=== PATIENT | male | born 1955 | race Caucasian/White ===

== ENCOUNTER 2021-09-03 09:32 | Outpatient (CLI) | payer MEDICARE, MEDICAID, SELFPAY ==
--- NOTE | ~2021-09-03 | MR_ITS ---
EXAMINATION: MR brain/brain stem wo con DATE: 09/03/2021 10:35 INDICATION: Long-term current use of current drug therapy. TECHNIQUE: Magnetic resonance imaging (MRI) of the brain and brainstem was performed without intraven ous contrast. Sequences included sagittal and axial T1-weighted FSE, axial diffusion-weighted FS EPI, axial T2*-weighted GRE, axial T2-weighted FLAIR Propeller, and axial T2-weighted Propeller. Apparent diffusion coefficient (ADC) maps were created. COMPARISON: None. FINDINGS: There are scattered areas of nonspecific increased T2-weighted signal intensity in the cere bral white matter. There is no intracranial hemorrhage, acute infarction, or abnormal intracranial ma ss lesion. The ventricles are normal in size. The orbits are normal. Right maxillary sinuses small an d completely opacified. The mastoid air cells are normal. IMPRESSION: 1. Moderate nonspecific cerebral white matter disease, which likely represents chronic small vessel i schemic disease. 2. Chronic sinusitis. Reviewed, dictated and finalized at location A. TIONSHIP ADVISOR IMPRESSION: 1. Moderate nonspecific cerebral white matter disease, which likely represents chronic small vessel ischemic disease. 2. Chronic sinusitis.
== END 2021-09-03 09:33 | disposition home or self-care (01) ==
PROVIDERS: PCP Internal Medicine
DX: Z79.899 Other long term (current) drug therapy (principal); J32.9 Chronic sinusitis, unspecified; R93.0 Abnormal findings on diagnostic imaging of skull and head, not elsewhere classified
CPT/HCPCS: 70551

== ENCOUNTER 2022-10-19 20:23 | Emergency (ER) | payer MEDICARE, MEDICAID, SELFPAY ==
--- NOTE | ~2022-10-19 | CT_ITS ---
EXAMINATION: CT brain wo con DATE: 10/19/2022 21:08 INDICATION: fall, HI, lac to L sided head . TECHNIQUE: Computed tomography (CT) of the head was performed without intravenous contrast. The mA wa s adjusted according to patient size. Iterative reconstruction technique was employed. The dose-lengt h product was 832.33 mGy-cm. COMPARISON: None. FINDINGS: No acute intracranial hemorrhage or extra-axial fluid collection. No hydrocephalus, mass, or herniation. No acute ischemic infarct. Unremarkable dural venous sinus attenuation. No acute osseous abnormality. Small left posterior temporal scalp contusion. Opacification of the right medullary sinus, the remaining aerated spaces are clear. Mild atrophy and chronic white matter change. Atherosclerotic intracranial calcification. Basilar dol ichoectasia. IMPRESSION: No acute intracranial process. Reviewed, dictated and finalized at location K.
--- NOTE | ~2022-10-19 | CT_ITS ---
EXAMINATION: CT cervical spine wo con DATE: 10/19/2022 21:17 INDICATION: fall, HI TECHNIQUE: Computed tomography (CT) of the cervical spine was performed without intravenous contrast. Automated exposure control and iterative reconstruction technique were employed. The dose-length pro duct was 762.99 mGy-cm. COMPARISON: None. FINDINGS: Vertebral Body Alignment: Intact. Reversed cervical lordosis. Craniocervical and atlantoaxial alignment: Mild degenerative change. Alignment intact. Osseous structures/fracture: No evidence of a lytic or blastic process in the visualized spine. No e vidence of acute fracture. . Cervical soft tissues: The paraspinal soft tissues planes are maintained. Enlarged thyroid. Degenerative changes: Multilevel severe degenerative disc disease with large bridging osteophytes, mu ltilevel mild facet arthropathy, without severe neural foraminal or central canal narrowing. IMPRESSION: No acute fracture or traumatic malalignment in the cervical spine. Thyroid goiter. Reviewed, dictated and finalized at location K. IMPRESSION: No acute fracture or traumatic malalignment in the cervical spine. Thyroid goit er.
[2022-10-19 20:27] VITALS: BP 111/71; PULSE 63; RESP 18; TEMP 36.4; O2SAT 100
[2022-10-19 20:38] VITALS: BP 127/84; PULSE 66; RESP 15; TEMP 36.5; O2SAT 100
[2022-10-19 21:18] VITALS: BP 127/74; PULSE 60; O2SAT 98
--- NOTE | 2022-10-19 21:45 | ED.WOUNDLAC ---
HPI - Wound/Laceration General Chief Complaint: Wound/Laceration Stated Complaint: fell in shower-hit head Time Seen by Provider: 10/19/22 20:53 Source: patient and family Mode of arrival: ambulatory Limitations: dementia History of Present Illness HPI narrative: Patient is a 67 y/o male who presents to the ED with report of head injury. Patient has a Hx of dementia and lives in a [facility] in [place], [place]. Caregiver at bedside assisted in providing information. She reports that patient was showering with one of the aides today when he slipped and fell, hitting the left side of his head against the shower floor. He sustained a small laceration to his left temporal scalp. Staff denied LOC. They state he has been at his neurologic baseline and moving all of his extremities since then. Denied any other injuries. Patient unable to voice any other concerns. Patient is not on any blood thinners. Related Data Home Medications Medication Instructions Recorded Confirmed acetaminophen 325 mg tablet (Mapap 325 mg PO Q6H PRN 10/01/21 10/01/21 (acetaminophen)) bisacodyl 5 mg tablet 10 mg PO QHS 10/01/21 10/01/21 bismuth subsalicylate 262 mg 2 tablet PO QID 10/01/21 10/01/21 chewable tablet (Bismatrol) guaifenesin 100 mg/5 mL oral 200 mg PO Q4H PRN 10/01/21 10/01/21 liquid (Robafen) triamcinolone acetonide 0.025 % 1 applic topical BID 10/01/21 10/01/21 topical cream Allergies Allergy/AdvReac Type Severity Reaction Status Date / Time No Known Allergies Allergy Verified 10/01/21 09:15 Review of Systems Review of Systems: ROS unobtainable: Yes unobtainable due to mental status PMFSH Past Medical History Medical History Dementia Surgical History Surgical History No pertinent past surgical history Social History Social History Smoking status: Never smoker Exam Narrative: GENERAL: Elderly, non-toxic, in no acute distress. HEAD: Normocephalic. Tender contusion to L posterior temporal scalp. Vertical linear 2cm laceration with no active bleeding, well approximated. ENT: Partially edentulous. NECK: Supple. No adenopathy, no masses. No midline spinal tenderness. RESPIRATORY: Airway patent, respirations nonlabored. Clear to auscultation bilaterally, no rales, rhonchi, wheezing. CARDIOVASCULAR: Regular rate and rhythm without murmurs, rubs, or gallops. Radial pulses 2+ and equal bilaterally. ABDOMINAL: Soft, nontender, nondistended, no hepatosplenomegaly. Normoactive BS. MUSCULOSKELETAL: Moves all extremities. No edema. No appreciable tenderness to palpation throughout all 4 extremities. SKIN: Warm, dry, normal color. No rashes. NEURO: Alert. Speech garbled, chronic per caregiver. Cranial nerves II-XII grossly intact. No ataxic movements. No focal deficits. Moving all extremities. PSYCHIATRIC: Appropriate mood and affect. Normal interaction. Course Vital Signs Vital signs: Vital Signs Temperature 97.6 F 10/19/22 20:27 Pulse Rate 63 10/19/22 20:27 Respiratory Rate 18 10/19/22 20:27 Blood Pressure 111/71 10/19/22 20:27 Pulse Oximetry 100 10/19/22 20:27 Oxygen Delivery Room Air 10/19/22 20:27 Temperature 97.7 F 10/19/22 20:38 Pulse Rate 67 10/19/22 22:52 Respiratory Rate 18 10/19/22 22:52 Blood Pressure 132/79 10/19/22 22:52 Pulse Oximetry 100 10/19/22 22:52 Oxygen Delivery Room Air 10/19/22 20:27 Procedures Laceration Laceration 1: Date: 10/19/22 Time: 21:45 Site: scalp Side (If applicable): left Size (cm): 2 Description: linear Depth: simple, single layer Local Anesthetic: none Pre-repair: wound explored and irrigated ====== Skin Level ====== Skin layer closed with: catrachita (#3) ====== Subcutaneo
[2022-10-19 22:52] VITALS: BP 132/79; PULSE 67; RESP 18; O2SAT 100
== END 2022-10-19 22:18 ==
PROVIDERS: Emergency Provider Physician Assistant
DX: S01.01XA Laceration without foreign body of scalp, initial encounter (principal); F03.90 Unspecified dementia, unspecified severity, without behavioral disturbance, psychotic disturbance, mood disturbance, and anxiety; W18.2XXA Fall in (into) shower or empty bathtub, initial encounter
CPT/HCPCS: 12001; 70450; 72125; 99284

== ENCOUNTER 2024-04-16 18:37 | Inpatient (IN) | payer MEDICARE, SELFPAY ==
--- NOTE | ~2024-04-16 | CT_ITS ---
CLINICAL INDICATION: Sacral decubitus. COMPARISON: None. TECHNIQUE: An enhanced CT of the abdomen and pelvis was performed utilizing multislice spiral technCHROMAom ue reconstructed at 2.5 mm slice thickness. Coronal and sagittal reconstructions were performed. The dose-length product was 1307.79 mGy-cm. Examination is markedly limited by motion artifact. FINDINGS/OBSERVATIONS: Visualized lower thorax:Dependent atelectasis within the bilateral lung bases. The heart is enlarged without pericardial effusion. Moderate hiatal hernia is present. Liver: Liver is normal in size and attenuation. Gallbladder and biliary system: The gallbladder is distended, likely with calcified stones (although possibly artifactual given motion artifact and adjacent vascular structures). Pancreas: The pancreas enhances homogeneously, without ductal dilatation. Spleen: The spleen is enlarged measuring 12 cm in longitudinal dimension. Kidneys: The bilateral kidneys enhance symmetrically. No stones or hydronephrosis. Adrenal glands: Bilateral adrenal glands are unremarkable Gastrointestinal tract: Fecal stasis within the transverse colon and rectum. Appendix:The appendix is of normal caliber (axial series, image 140) Vasculature: Densely calcified atherosclerotic disease. Lymph nodes: Scattered subcentimeter lymph nodes within the retroperitoneum and at the root of the me sentery. Scattered subcentimeter lymph nodes within the pelvis, without abnormal morphology or pathologic enla rgement. Pelvic structures: The bladder is decompressed with a Hagan catheter, limiting its evaluation. Significant amount of presacral inflammatory change is present, originating above the sacrum (at the level of the external iliacs artery and vein) and extending deep into the prerectal/presacral space. No superficial soft tissue defect is appreciated on cross-sectional imaging to suggest decubitus ulc er. Body wall and musculoskeletal: Anasarca within the visualized soft tissues of the deep pelvis and upp er thighs. IMPRESSION: Significant inflammatory change within the presacral space of the pelvis. No soft tissue defect or drainable fluid collection is appreciated. Splenomegaly. Reviewed, dictated and finalized at location A.
--- NOTE | ~2024-04-16 | XR_ITS ---
EXAMINATION: XR abdomen/kub 1V DATE: 04/22/2024 10:43 INDICATION: Constipation. TECHNIQUE: A supine view of the abdomen on 2 radiographs was obtained. COMPARISON: CT abdomen and pelvis 04/17/2024, radiographs 04/20/2024 FINDINGS: The small bowel is normal in caliber. Stool distends the rectum. IMPRESSION: 1. Stool distends the rectum. Reviewed, dictated and finalized at location A.
--- NOTE | ~2024-04-16 | XR_ITS ---
Exam: Abdomen 2V HISTORY: constipation COMPARISON: Reference is made to CT examination of the abdomen and pelvis dated 04/17/2024 TECHNIQUE: Supine images of the abdomen and pelvis. FINDINGS: Redemonstration of fecal stasis distending the rectum. Significantly enlarged air opacified stomach. Scattered loops small bowel without deonna dilatation. IMPRESSION: Findings suggesting impaction, as detailed above. Reviewed, dictated and finalized at location A.
--- NOTE | ~2024-04-16 | XR_ITS ---
XR chest 1V portable Ordering provider: Harjinder Leigh MD History: 69 years Male with . weakness/emesis . Comparison: July 31, 2015 FINDINGS: MEDIASTINUM: The cardiac silhouette is slightly enlarged. Congestive jonnathan. LUNGS: No infiltrates, effusions or pneumothorax. Prominent markings bilaterally with interstitial ch anges. OTHER: No free air under the diaphragm. Postoperative changes in the lower cervical area. IMPRESSION: Cardiomegaly with congestive jonnathan. Bilateral interstitial changes suggestive of pneumonitis versus pu lmonary edema. Reviewed, dictated and finalized at location A. IMPRESSION: Cardiomegaly with congestive jonnathan. Bilateral interstitial changes suggestive of pneumonitis versus pulmonary edema.
[2024-04-16 18:42] VITALS: TEMP 36.5
[2024-04-16 19:01] VITALS: BP 94/63; PULSE 94; RESP 20; O2SAT 98
[2024-04-16 19:03] VITALS: BP 94/63; PULSE 90; RESP 14; O2SAT 96
--- NOTE | 2024-04-16 19:03 | PC.NURSE ---
Pt arrived from [facility], [place] with 16FR chronic colon in place. urine in colon back was a dark yellow with sediment, thick, and had a foul odor. Colon exchanged with a new 16 bengali catheter.
--- NOTE | 2024-04-16 19:12 | ECG_ITS ---
Test Date: 2024-04-16 19:24:02 Measurements Intervals Milo Rate: 90 P: 22 NH: 122 QRS: -52 QRSD: 110 T: 72 QT: 368 QTc: 452 Interpretive Statements SINUS RHYTHM INCOMPLETE RIGHT BUNDLE BRANCH BLOCK [90+ ms QRS DURATION, TERMINAL R IN V1/V2, 40+ ms S IN I/aVL/V4/V5/V6] LEFT ANTERIOR FASCICULAR BLOCK [QRS AXIS <= -45, QR IN I, RS IN II] NONSPECIFIC T-WAVE ABNORMALITY ABNORMAL ECG No previous ECG available for comparison Electronically Signed On 04-17-2024 07:27:00 CDT by John Murphy M.D.
[2024-04-16] MEDS: PANTOPRAZOLE SODIUM IV 40 MG VIAL IV PUSH (19:51)
[2024-04-16 20:00] LABS: Basophils Percent Auto 0.2 % (0.2-1.2); Eosinophils Absolute Auto 0.3 K/mm3 (0-0.3); Eosinophils Percent Auto 3.8 % (0-4.4); Hematocrit 29.1 % (42.0-52.0); Hemoglobin 8.8 g/dL (14.0-18.0); Immature Granulocyte Absolute 0.06 K/mm3 (0.00-0.031); Immature Granulocyte Percent A 0.7 % (0-0.5); Lymphocytes Absolute Auto 1.47 K/mm3 (0.9-3.2); Lymphocytes Percent Auto 17.9 % (18.3-44.2); Mean Corpuscular HGB Conc 30.2 g/dl (32-36); Mean Corpuscular Hemoglobin 26.3 pg (26-34); Mean Corpuscular Volume 87.1 fl (80-100); Mean Platelet Volume 8.5 fl (7.4-10.4); Monocytes Absolute Auto 0.6 K/mm3 (0.1-0.6); Monocytes Percent Auto 7.6 % (2.6-8.5); Neutrophils Absolute Auto 5.7 K/mm3 (1.3-6.7); Neutrophils Percent Auto 69.8 % (45.5-73.1); Nucleated Red Blood Cells Perc 0.2 % (0.0-0.2); Platelet Count Result 398 k/mm3 (150-375); Red Blood Count 3.34 M/mm3 (4.6-6.20); Red Cell Distribution Width 15.2 % (11.5-14.5); White Blood Count 8.2 K/mm3 (4.5-10.0)
[2024-04-16 20:10] LABS: Alanine Aminotransferase 36 U/L (6-50); Albumin Level 2.9 g/dL (3.5-5.1); Alkaline Phosphatase 141 U/L (38-126); Anion Gap 8 mmol/L (4-12); Aspartate Amino Transferase 69 U/L (17-59); Bilirubin,Total 0.6 mg/dL (0.2-1.3); Blood Urea Nitrogen 22 mg/dL (9-20); Calcium 8.1 mg/dL (8.4-10.2); Carbon Dioxide 27 mmol/L (22-30); Chloride 103 mmol/L (98-107); Estimated CRCL calculation 135 ml/min; Estimated Glomerular Filt Rate > 60; Glucose 130 mg/dL (65-110); Potassium 3.6 mmol/L (3.4-5.0); Sodium 138 mmol/L (137-145)
[2024-04-16 20:23] VITALS: BP 98/58; PULSE 96; RESP 16; O2SAT 96
[2024-04-16 20:45] LABS: Add Urine Microscopic? YES; Appearance Urine Turbid (Clear); Bacteria Urine Rare /hpf; Bilirubin Urine Negative (Negative); Blood Urine 3+ (Negative); Color Urine Dark Yellow (Yellow); Glucose Urine UA Negative (Negative); Ketones Urine Trace mg/dL (Negative); Leukocyte Esterase Ur 2+ LEU/UL (Negative); Need Manual Microscopic Reviewed; Nitrate Urine Negative (Negative); Protein Urine 3+ mg/dL (Negative); RBC Urine >100 /hpf (0-2); Specific Grav Ur 1.029 (1.001-1.035); Squamous Epithelial Cell Urine None Seen /hpf (Few); WBC Urine >100 /hpf (0-3)
[2024-04-16] MEDS: SODIUM CHLORIDE 0.9% IV 1,000 ML 999 ML IV CONT (21:03)
--- NOTE | 2024-04-16 21:13 | ED.GIBLEED ---
HPI - GI Bleed General Chief complaint: GI Bleed Stated complaint: coffee ground emesis Time Seen by Provider: 04/16/24 19:22 History of Present Illness HPI Narrative: Patient is a 69-year-old male who is orient x1 at baseline who presents ER with concerns for coffee-ground emesis. Patient endorses mild nausea but cannot provide any additional history. No obvious blood around the mouth. Hagan catheter in place and patient is in padded lower extremity boots. Related Data Home Medications Medication Instructions Recorded Confirmed acetaminophen 325 mg tablet (Mapap 325 mg PO Q6H PRN 10/01/21 10/01/21 (acetaminophen)) bisacodyl 5 mg tablet 10 mg PO QHS 10/01/21 10/01/21 bismuth subsalicylate 262 mg 2 tablet PO QID 10/01/21 10/01/21 chewable tablet (Bismatrol) guaifenesin 100 mg/5 mL oral 200 mg PO Q4H PRN 10/01/21 10/01/21 liquid (Robafen) triamcinolone acetonide 0.025 % 1 applic topical BID 10/01/21 10/01/21 topical cream Allergies Allergy/AdvReac Type Severity Reaction Status Date / Time No Known Allergies Allergy Verified 04/16/24 19:09 Review of Systems Review of Systems: ROS unobtainable: Yes unobtainable due to mental status PMFSH Past Medical History Medical History (Updated 04/16/24 @ 22:20 by Feroz Rai MD) Bipolar disorder Pulmonary hypertension Vascular dementia Surgical History Surgical History No pertinent past surgical history Social History Social History Smoking status: Never smoker Exam Narrative: GENERAL: Chronically ill-appearing, well-nourished, and in no acute distress. HEAD: Normocephalic, atraumatic. EYES: PERRL and EOMI. ENT: Mucous membranes moist. CHEST: Clear to auscultation. No respiratory distress. HEART: Regular rate and rhythm. Normal peripheral pulses. ABDOMEN: Soft, nontender, nondistended. Heme-positive stool on guaiac but no gross blood. EXTREMITIES: Chronic upper and lower extremity weakness and unable to move self. SKIN: Warm, dry, no rash. Decubitus ulcer with her bandaging. NEURO: Alert and oriented x1. Course Course Emergency Course: Admit for observation. Q.6 hours H&Hs. Mild anemia but unsure what baseline is. Will have GI consult in the morning. Nursing staff change Hagan catheter. Vital Signs Vital signs: Vital Signs Temperature 97.7 F 04/16/24 18:42 Temperature 97.7 F 04/16/24 18:42 Pulse Rate 96 04/16/24 20:23 Respiratory Rate 16 04/16/24 20:23 Blood Pressure 98/58 L 04/16/24 20:23 Pulse Oximetry 96 04/16/24 20:23 MDM - GI Bleed Lab Data 04/16/24 19:16 04/16/24 19:16 Labs: Lab Results 04/16/24 04/16/24 04/16/24 Range/Units 19:16 20:25 21:05 WBC 8.2 (4.5-10.0) K/mm3 RBC 3.34 L (4.6-6.20) M/mm3 Hgb 8.8 L (14.0-18.0) g/dL Hct 29.1 L (42.0-52.0) % MCV 87.1 (80-100) fl MCH 26.3 (26-34) pg MCHC 30.2 L (32-36) g/dl RDW 15.2 H (11.5-14.5) % Plt Count 398 H (150-375) k/mm3 MPV 8.5 (7.4-10.4) fl Immature Gran % (Auto) 0.7 H (0-0.5) % Neut % (Auto) 69.8 (45.5-73.1) % Lymph % (Auto) 17.9 L (18.3-44.2) % Morrison % (Auto) 7.6 (2.6-8.5) % Eos % (Auto) 3.8 (0-4.4) % Baso % (Auto) 0.2 (0.2-1.2) % Lymph # (Auto) 1.47 (0.9-3.2) K/mm3 Morrison # (Auto) 0.6 (0.1-0.6) K/mm3 Eos # (Auto) 0.3 (0-0.3) K/mm3 Baso # (Auto) 0.0 (0.0-0.1) K/mm3 Abs Immat Gran (auto) 0.06 H (0.00-0.031) K/mm3 Absolute Neuts (auto) 5.7 (1.3-6.7) K/mm3 Absolute Nucleated RBC 0.020 H (0.0-0.012) K/mm3 Nucleated RBC % 0.2 (0.0-0.2) % Sodium 138 (137-145) mmol/L Potassium 3.6 (3.4-5.0) mmol/L Chloride 103 (98-107) mmol/L Carbon Dioxide 27 (22-30) mmol/L Anion Gap 8 (4-12) mmol/L BUN 22 H (9-20) mg/dL Creatinine 0.50 L (
--- NOTE | 2024-04-16 21:44 | PM.IMHP ---
H&P: HPI History of Present Illness Date/Time: 04/16/24 21:44 Chief Complaint: Coffee-ground emesis Narrative: This is a 69-year-old male who resides at a local home group has past medical history significant for seizure disorder, bipolar disorder, chronic indwelling Hagan catheter, dementia, gait disturbance. patient was brought to the emergency room for evaluation after episode of coffee-ground emesis patient is unable to give any history in emergency room he had a positive occult blood has been placed in observation for further evaluation management and treatment. Patient is unable to contribute in a meaningful way to history taking. Preliminary workup was significant for hemoglobin of 8.6 hematocrit of 28 MCV is 87 a urinalysis showed more than 100 WBCs present XR chest 1V portable Ordering provider: Harjinder Leigh MD History: 69 years Male with . weakness/emesis . Comparison: July 31, 2015 FINDINGS: MEDIASTINUM: The cardiac silhouette is slightly enlarged. Congestive jonnathan. LUNGS: No infiltrates, effusions or pneumothorax. Prominent markings bilaterally with interstitial changes. OTHER: No free air under the diaphragm. Postoperative changes in the lower cervical area. IMPRESSION: Cardiomegaly with congestive jonnathan. Bilateral interstitial changes suggestive of pneumonitis versus pulmonary edema. [facility] Past Medical History Medical History (Updated 04/17/24 @ 21:05 by Leland Magallanes MD) Bipolar disorder Pulmonary hypertension Vascular dementia Surgical History Surgical History No pertinent past surgical history Family History Family History (Updated 04/16/24 @ 23:45 by Domonique Castro RN) Father Hypertension Mother Lung cancer Diabetes mellitus Sibling Diabetes mellitus Cancer Hypertension Social History Social History Smoking status: Never smoker Alcohol intake: never Substance use: never Spiritual care concerns: No Meds Home Medications and Allergies Home Medications Medication Instructions Recorded Confirmed Type aripiprazole 20 mg tablet 20 mg PO DAILY 04/17/24 04/17/24 History escitalopram oxalate 10 mg tablet 10 mg PO .EVERYOTHERDAY 04/17/24 04/17/24 History furosemide 20 mg tablet 20 mg PO .04/17/24 04/17/24 History polyethylene glycol 3350 17 17 g PO DAILY PRN Constipation 10/08/24 10/08/24 History gram/dose oral powder simvastatin 20 mg tablet 20 mg PO HS 04/17/24 04/17/24 History trazodone 50 mg tablet 50 mg PO HS 04/17/24 04/17/24 History valproic acid (as sodium salt) 250 250 mg PO Q12H 04/17/24 04/17/24 History mg/5 mL syringe (FOR ORAL USE ONLY) Allergies Allergy/AdvReac Type Severity Reaction Status Date / Time No Known Allergies Allergy Verified 04/16/24 19:09 Vital Signs Vital Signs - 24 hr 04/16/24 18:42 04/16/24 19:03 04/16/24 20:23 Temperature 97.7 F Pulse Rate 90 96 Respiratory Rate 14 16 Blood Pressure 94/63 L 98/58 L Pulse Oximetry 96 96 04/16/24 19:01 Temperature Pulse Rate 94 Respiratory Rate 20 Blood Pressure 94/63 L Pulse Oximetry 98 Exam Narrative: patient is laying in bed Const: General: comfortable, no acute distress, well developed, alert, awake and average body habitus Nutritional Appearance: average body habitus Orientation/consciousness: oriented to person Other: dry mucosa HENMT: Head: normal to inspection, normocephalic and atraumatic Ears: hearing grossly normal bilaterally Face/Nose/Sinus: normal facial exam Face and sinus: normal facial exam Eyes: General: appearance normal, both eyes and all related structures Pupils: Equal, round and reactive pupils present EOM: EOMs intact bilaterally Neck: Neck: full ROM, no lymphadenopathy and no JVD Thyroid: thyroid normal Lymphatic: no lymphadenopathy noted Resp: E
--- NOTE | 2024-04-16 22:41 | PC.NURSE ---
Report called to THEA Brown. All questions answered at this time.
--- NOTE | 2024-04-16 22:52 | ADMGEN ---
This patient, Justin Langford, was admitted to Medical Room 243-01. Patient/family oriented to hospital policies and general routines including ID bracelet, bed and alarms, visiting hours, pain management, procedures, bathroom and other care routines, personal items, smoking policy, room service/diet, and visiting hours. Information on how to activate the Rapid Response Team has been discussed. Patient/Family are encouraged to report perceived risks to care and to ask questions if they do not understand what they are told or what they should do.
[2024-04-16] MEDS: SODIUM CHLORIDE 0.9% IV 1,000 ML 125 ML IV CONT (23:05)
[2024-04-16 23:14] VITALS: BP 99/52; PULSE 97; RESP 20; TEMP 36.9; O2SAT 99
[2024-04-16 23:15] VITALS: BMI 24.9
[2024-04-17] VITALS (10 sets, daily range): BP systolic 95–120; BP diastolic 46–71; PULSE 83–98; RESP 17–25; TEMP 36.3–36.7; O2SAT 93–99; BMI 24.9
[2024-04-17 01:08] LABS: Hematocrit 28.2 % (42.0-52.0); Hemoglobin 8.6 g/dL (14.0-18.0)
[2024-04-17 05:57] LABS: Hematocrit 25.8 % (42.0-52.0); Hemoglobin 7.6 g/dL (14.0-18.0)
[2024-04-17 06:22] LABS: Iron 22 ug/dL (49-181)
[2024-04-17 06:31] LABS: Percent Iron Saturation 12 % (20-50)
[2024-04-17 07:10] LABS: Folic Acid 5.3 ng/mL (2.76->20)
--- NOTE | 2024-04-17 07:18 | PM.IMPN ---
Progress Note: A&P Assessment and Plan (1) Occult GI bleeding: Code(s): R19.5 - Other fecal abnormalities Status: Acute Assessment and Plan: [facility] No obvious signs of bleeding on exam. Not on anticoagulation. Blood pressures have been soft 95/46, 90 HR. Hemoglobin 8.8 g/dl on admission, hgb 7.6 g/dl this morning BUN 22 Anemia panel: Iron 22, TIBC 191, Saturation 12%, vitamin B12 and folate normal Occult blood pending collection Trend H/H, transfuse for Hemoglobin less than 7 g/dl IV Venofer x 1 and start on Iron supplement daily Received 1 L bolus in the ED and receiving 1 L bolus NS this morning. On maintenance fluids at 125 ml per hour while NPO. GI consulted, rec's are appreciated (2) Wound of gluteal cleft: Code(s): S31.809A - Unspecified open wound of unspecified buttock, initial encounter Status: Acute Assessment and Plan: Wound to left gluteal clef unstageable wound with surrounding erythema with purulent drainage. [facility] and is [facility] care at [facility]. CT abdomen and pelvis w contrast now WBC normal, lactic pending On Rocephin for UTI, added Vancomycin CRP, ESR pending Turn Q 2 hours, frequent repositioning Wound care consulted. For now daily wound care with Santyl, adaptic, and ABD daily and as needed for soiled dressing. General surgery consulted as this may need to be debrided, recs appreciated (3) UTI (urinary tract infection): Code(s): N39.0 - Urinary tract infection, site not specified Status: Acute Assessment and Plan: Chronic Hagan catheter. U/A on admission showed turbid dark yellow urine with 3+ protein, trace ketones, 3+ blood 2 a day, RBC and WBC greater than 100, rare urine bacteria. WBC normal, no neutrophils Urine sent for culture. Suspect this is colonization. Obtain blood cultures if febrile greater than 100.4 Make sure catheter was exchanged. Started on Rocephin (4) Normochromic normocytic anemia: Code(s): D64.9 - Anemia, unspecified Status: Acute Assessment and Plan: Hemoglobin 8.8 g/dl, MCHC 30.2 Anemia panel shows iron deficiency Investigate upper GI bleed Subjective Date/time seen: 04/17/24 07:18 Interval history: Resting in bed with his sister at the bedside. He is non-verbal, garbled speech at baseline. His family can sometime understand him. He is going for an EGD today. Review of Systems Review of Systems: ROS unobtainable: Yes unobtainable due to medical condition and unobtainable due to mental status Exam Narrative: General: appears comfortable, in no acute distress, does not open eyes to verbal stimuli Respiratory: breathing is unlabored with even chest rise/fall, lungs are clear without wheezing, rhonchi, and crackles Cardiovascular: Rate and rhythm regular, normal s1s2, no murmur Abdomen: Soft, round, non-tender, active bowel sounds Extremities: No cyanosis, edema, clubbing. Pulses 2/2, bilateral footdrop, hands are contracted Neuro: Unable to assess. Garbled speech, moaning and groaning to stimuli Skin: Warm, dry, intact. Pressure related injury to left buttocks with eschar wound bed and surrounding erythema Objective Data Vital Signs Vital Signs: Vital Signs - 24 hr 04/16/24 18:42 04/16/24 19:03 04/16/24 20:23 Temperature 97.7 F Pulse Rate 90 96 Respiratory Rate 14 16 Blood Pressure 94/63 L 98/58 L Pulse Oximetry 96 96 Oxygen Delivery 04/16/24 19:01 04/16/24 23:14 04/16/24 23:30 Temperature 98.5 F Pulse Rate 94 97 Respiratory Rate 20 20 Blood Pressure 94/63 L 99/52 L Pulse Oximetry 98 99 Oxygen Delivery Room Air 04/17/24 00:00 04/17/24 04:57 04/17/24 04:00 Temperature 98.1 F Pulse Rate 98 90 93 Respiratory Rate 24 H Blood Pressure 95/46 L Pulse Oximetry 94 Oxygen Delivery Intake/Output Intake/Output: Intake & Ou
[2024-04-17] MEDS: SODIUM CHLORIDE 0.9% IV 1,000 ML 999 ML IV CONT (07:41)
--- NOTE | 2024-04-17 08:08 | WPDGICN ---
Assessment and Plan Assessment and plan (1) Coffee ground emesis: Code(s): K92.0 - Hematemesis Status: Acute Assessment and Plan: Coffee-ground emesis / Normocytic Anemia: Asked to be seen for coffee ground emesis. No known history of GI bleed. No known history of EGD. Colonoscopy reviewed from [address] Leung for rectal bleeding and family history of colon polyps with evidence of a sigmoid colon polyp and internal hemorrhoids. Hemoglobin on admission was 8.8 has dropped to 7.6 this morning with hematocrit of 25.8, MCV 87.1, BUN 22, creatinine 0.50, iron 22, TIBC 191, iron sat 12%. No ferritin. Anemia appears to be more anemia of chronic disease although but no baseline Hgb to trend. There is concern for upper GI bleed. No visible bleeding at this time. He is currently NPO -Keep NPO and will arrange EGD today to assess for any GI bleeding. -Monitor H&H -Continue pantoprazole 40 mg BID IV at this time -Recommend colonoscopy outpatient -further recs following EGD. Thank you very much for allowing me to share in the care of this very nice patient. This report may have been done utilizing a voice recognition system. Attempts have been made to correct errors. However, there may be uncorrected grammatical, spelling, and recognition errors present. (2) Normocytic anemia: Code(s): D64.9 - Anemia, unspecified Status: Acute (3) Dementia: Code(s): F03.90 - Unspecified dementia, unspecified severity, without behavioral disturbance, psychotic disturbance, mood disturbance, and anxiety Status: Acute (4) Chronic indwelling Hagan catheter: Code(s): Z97.8 - Presence of other specified devices Status: Acute (5) Bipolar disorder: Code(s): F31.9 - Bipolar disorder, unspecified Status: Acute (6) UTI (urinary tract infection): Code(s): N39.0 - Urinary tract infection, site not specified Status: Acute (7) History of adenomatous polyp of colon: Code(s): Z86.0101 - Personal history of adenomatous and serrated colon polyps Status: Acute GI Consult Note Consult date/time: 04/17/24 08:08 Reason for consult: coffee ground emesis HPI: This is a pleasant 69 yo male with a past medical surgical history of vascular dementia, bipolar disorder, seizures, and pulmonary hypertension. He presented to the ER room 04/16/2024 with complaints of coffee-ground emesis. [facility]. GI consulted for coffee ground emesis. He is alert and oriented x 1 at baseline. HPI was obtained from ER history and physical and admission hospitalist note. He was brought to the emergency room for evaluation after episode of coffee-ground emesis. He had positive occult blood. Unknown history of any past GI bleeding. It does not appear there is NSAIDs on his medication list. It appears he eats a puree diet reviewing penitentiary notes. Per nurse this AM, has had no vomiting over night or stooling. He is currently NPO. His sister is his POA. Hemoglobin on admission was 8.8 has dropped to 7.6 this morning with hematocrit of 25.8, MCV 87.1, BUN 22, creatinine 0.50, iron 22, TIBC 191, iron sat 12% with normal b12 and folate. Not sure what his baseline Hgb is. ENDOSCOPY HISTORY: EGD: No known EGD per records COLONOSCOPY: 2012 (Dr. Hidalgo) rectal bleeding and family history of colon polyps sigmoid colon polyp and internal hemorrhoids -Sigmoid Colon polyp and internal hemorrhoids -Adenomatous colon polyp LABS AND STOOL STUDIES: Hemoglobin on admission 8.8 --> 7.6 this morning Hematocrit 25.8 MCV 87.1 BUN 22 Creatinine 0.50 Iron 22 TIBC 191 Iron sat 12% Vitamin B12 IMAGING: No recent GI imaging available [facility] Past Medical History Medical History (Updated 04/17/24 @ 08:19 by Mellisa Trevino, TRISTEN) Bipolar disorder Pulmonary hypertension Vascular dementia Surgical History Surgical History (Revie
[2024-04-17 08:43] LABS: Basophils Percent Auto 0.5 % (0.2-1.2); Eosinophils Absolute Auto 0.4 K/mm3 (0-0.3); Eosinophils Percent Auto 6.7 % (0-4.4); Hematocrit 25.2 % (42.0-52.0); Hemoglobin 7.6 g/dL (14.0-18.0); Immature Granulocyte Absolute 0.08 K/mm3 (0.00-0.031); Immature Granulocyte Percent A 1.4 % (0-0.5); Lymphocytes Absolute Auto 1.56 K/mm3 (0.9-3.2); Lymphocytes Percent Auto 26.8 % (18.3-44.2); Mean Corpuscular HGB Conc 30.2 g/dl (32-36); Mean Corpuscular Hemoglobin 26.6 pg (26-34); Mean Corpuscular Volume 88.1 fl (80-100); Mean Platelet Volume 8.6 fl (7.4-10.4); Monocytes Absolute Auto 0.5 K/mm3 (0.1-0.6); Monocytes Percent Auto 8.1 % (2.6-8.5); Neutrophils Absolute Auto 3.3 K/mm3 (1.3-6.7); Neutrophils Percent Auto 56.5 % (45.5-73.1); Platelet Count Result 359 k/mm3 (150-375); Red Blood Count 2.86 M/mm3 (4.6-6.20); Red Cell Distribution Width 15.2 % (11.5-14.5); White Blood Count 5.8 K/mm3 (4.5-10.0)
[2024-04-17] MEDS: SODIUM CHLORIDE 0.9% IV 1,000 ML 125 ML IV CONT (08:49)
[2024-04-17] MEDS: IRON SUCROSE COMPLEX 200 MG, IRON SUCROSE COMPLEX 100 MG in SODIUM CHLORIDE 0.9% IV 250 ML 176.67 MG IVPB (08:50)
[2024-04-17 08:57] LABS: Alanine Aminotransferase 28 U/L (6-50); Albumin Level 2.5 g/dL (3.5-5.1); Alkaline Phosphatase 115 U/L (38-126); Anion Gap 5 mmol/L (4-12); Aspartate Amino Transferase 52 U/L (17-59); Bilirubin,Total 0.4 mg/dL (0.2-1.3); Blood Urea Nitrogen 18 mg/dL (9-20); Calcium 7.8 mg/dL (8.4-10.2); Carbon Dioxide 25 mmol/L (22-30); Chloride 110 mmol/L (98-107); Estimated CRCL calculation 164 ml/min; Estimated Glomerular Filt Rate > 60; Glucose 96 mg/dL (65-110); Potassium 3.3 mmol/L (3.4-5.0); Sodium 140 mmol/L (137-145)
[2024-04-17] MEDS: FERROUS SULFATE 325 MG TABLET DR PO (08:57)
[2024-04-17] MEDS: PANTOPRAZOLE SODIUM IV 40 MG VIAL IV PUSH ×2 (08:57→21:03)
[2024-04-17] MEDS: VALPROIC ACID LIQ 250 MG/5 ML ORAL SOLUTION UDC PO ×2 (08:57→21:03)
[2024-04-17] MEDS: ARIPiprazole 10 MG TABLET 20 MG PO (08:57)
--- NOTE | 2024-04-17 10:50 | PC.NURSE ---
To GI Lab at 1050, IV in R and L hand. Report given to THEA Serna.
[2024-04-17] MEDS: LACTATED RINGERS 1,000 ML 150 ML IV CONT (10:55)
--- NOTE | 2024-04-17 11:24 | WPDANESEPPF ---
Anes - Initial Pre Proc Eval Procedure: Operation Date: 04/17/24 15:00 Proposed Procedures p Esophagogastroduodenoscopy - Leland Magallanes MD Date/Time: 04/17/24 11:24 Surgeon: Tess Vzaquez MD Pre Op Diagnosis: Occult GI bleed, Anemia Patient Data Age: 69 Gender: M Height: 1.88 m Weight: 88 kg Last Vital Signs Temp 97.3 F L 04/17/24 10:57 Pulse 90 04/17/24 10:57 Resp 22 H 04/17/24 10:57 BP 107/59 L 04/17/24 10:57 Pulse Ox 99 04/17/24 10:57 O2 Del Method Room Air 04/17/24 10:57 FiO2 21 04/17/24 08:02 Allergies Allergy/AdvReac Type Severity Reaction Status Date / Time No Known Allergies Allergy Verified 04/16/24 19:09 Home Medications Medication Instructions Recorded Confirmed Type aripiprazole 20 mg tablet 20 mg PO DAILY 04/17/24 04/17/24 History escitalopram oxalate 10 mg tablet 10 mg PO .EVERYDAY 04/17/24 04/17/24 History furosemide 20 mg tablet 20 mg PO .MONTuesday04/17/24 04/17/24 History polyethylene glycol 3350 17 17 g PO DAILY PRN Constipation 04/17/24 04/17/24 History gram/dose oral powder simvastatin 20 mg tablet 20 mg PO HS 04/17/24 04/17/24 History trazodone 50 mg tablet 50 mg PO HS 04/17/24 04/17/24 History valproic acid (as sodium salt) 250 250 mg PO Q12H 04/17/24 04/17/24 History mg/5 mL syringe (FOR ORAL USE ONLY) Laboratory Tests 04/16/24 04/16/24 04/16/24 19:16 20:25 21:05 WBC 8.2 K/mm3 (4.5-10.0) RBC 3.34 L M/mm3 (4.6-6.20) Hgb 8.8 L g/dL (14.0-18.0) Hct 29.1 L % (42.0-52.0) MCV 87.1 fl (80-100) MCH 26.3 pg (26-34) MCHC 30.2 L g/dl (32-36) RDW 15.2 H % (11.5-14.5) Plt Count 398 H k/mm3 (150-375) MPV 8.5 fl (7.4-10.4) Immature Gran % (Auto) 0.7 H % (0-0.5) Neut % (Auto) 69.8 % (45.5-73.1) Lymph % (Auto) 17.9 L % (18.3-44.2) Walker % (Auto) 7.6 % (2.6-8.5) Eos % (Auto) 3.8 % (0-4.4) Baso % (Auto) 0.2 % (0.2-1.2) Lymph # (Auto) 1.47 K/mm3 (0.9-3.2) Walker # (Auto) 0.6 K/mm3 (0.1-0.6) Eos # (Auto) 0.3 K/mm3 (0-0.3) Baso # (Auto) 0.0 K/mm3 (0.0-0.1) Abs Immat Gran (auto) 0.06 H K/mm3 (0.00-0.031) Absolute Neuts (auto) 5.7 K/mm3 (1.3-6.7) Absolute Nucleated RBC 0.020 H K/mm3 (0.0-0.012) Nucleated RBC % 0.2 % (0.0-0.2) Sodium 138 mmol/L (137-145) Potassium 3.6 mmol/L (3.4-5.0) Chloride 103 mmol/L (98-107) Carbon Dioxide 27 mmol/L (22-30) Anion Gap 8 mmol/L (4-12) BUN 22 H mg/dL (9-20) Creatinine 0.50 L mg/dL (0.7-1.3) Estim Creat Clear Calc 135 ml/min Estimated GFR > 60 (59 - ) Glucose 130 H mg/dL (65-110) Calcium 8.1 L mg/dL (8.4-10.2) Iron TIBC % Saturation Ferritin Total Bilirubin 0.6 mg/dL (0.2-1.3) AST 69 H U/L (17-59) ALT 36 U/L (6-50) Alkaline Phosphatase 141 H U/L (38-126) Total Protein 6.0 L g/dL (6.3-8.2) Albumin 2.9 L g/dL (3.5-5.1) Vitamin B12 Folate Urine Color Dark yellow (Yellow) Urine Appearance Turbid H (Clear) Urine pH 6.0 (5.0-9.0) Ur Specific [place] 1.029 (1.001-1.035) Urine Protein 3+ H mg/dL (Negative) Urine Glucose (UA) Negative mg/dL (Negative) Urine Ketones Trace H mg/dL (Negative) Ur Blood (Man) 3+ H (Negative) Urine Nitrate Negative (Negative) Urine Bilirubin Negative (Negative) Urine Urobilinogen 1.0 mg/dL (<2.0) Add Ur Microanalysis Reviewed Leukocyte Esterase Rfl 2+ H MARYSOL/UL (Negative) Urine R
--- NOTE | 2024-04-17 11:51 | PM.IMHP ---
H&P: HPI History of Present Illness Date/Time: 04/17/24 11:51 Chief Complaint: cofee ground emesis Narrative: This patient with a diagnosis of bipolar disorder, seizures, presented with coffee-ground emesis 24 hours ago. There is no reported hemodynamic instability. His hemoglobin dropped from 8.8-7.6, and he is here for EGD. Differential diagnosis includes erosive esophagitis, Neda-Don tear, or erosive lesions in the gastroduodenal region. Review of Systems Review of Systems: All systems reviewed & are unremarkable except as noted in HPI and below PMFSH Past Medical History Medical History (Updated 04/17/24 @ 11:56 by Leland Magallanes MD) Bipolar disorder Pulmonary hypertension Vascular dementia Surgical History Surgical History No pertinent past surgical history Family History Family History (Updated 04/16/24 @ 23:45 by Domonique Castro RN) Father Hypertension Mother Lung cancer Diabetes mellitus Sibling Diabetes mellitus Cancer Hypertension Social History Social History Smoking status: Never smoker Alcohol intake: never Substance use: never Spiritual care concerns: No Meds Home Medications and Allergies Home Medications Medication Instructions Recorded Confirmed Type aripiprazole 20 mg tablet 20 mg PO DAILY 04/17/24 04/17/24 History escitalopram oxalate 10 mg tablet 10 mg PO .EVERYOTHERDAY 04/17/24 04/17/24 History furosemide 20 mg tablet 20 mg PO .04/17/24 04/17/24 History polyethylene glycol 3350 17 17 g PO DAILY PRN Constipation 04/17/24 04/17/24 History gram/dose oral powder simvastatin 20 mg tablet 20 mg PO HS 04/17/24 04/17/24 History trazodone 50 mg tablet 50 mg PO HS 04/17/24 04/17/24 History valproic acid (as sodium salt) 250 250 mg PO Q12H 04/17/24 04/17/24 History mg/5 mL syringe (FOR ORAL USE ONLY) Allergies Allergy/AdvReac Type Severity Reaction Status Date / Time No Known Allergies Allergy Verified 04/16/24 19:09 Vital Signs Vital Signs - 24 hr 04/16/24 18:42 04/16/24 19:03 04/16/24 20:23 Temperature 97.7 F Pulse Rate 90 96 Respiratory Rate 14 16 Blood Pressure 94/63 L 98/58 L Pulse Oximetry 96 96 Oxygen Delivery Fraction of Inspired Oxygen 04/16/24 19:01 04/16/24 23:14 04/16/24 23:30 Temperature 98.5 F Pulse Rate 94 97 Respiratory Rate 20 20 Blood Pressure 94/63 L 99/52 L Pulse Oximetry 98 99 Oxygen Delivery Room Air Fraction of Inspired Oxygen 04/17/24 00:00 04/17/24 04:57 04/17/24 04:00 Temperature 98.1 F Pulse Rate 98 90 93 Respiratory Rate 24 H Blood Pressure 95/46 L Pulse Oximetry 94 Oxygen Delivery Fraction of Inspired Oxygen 04/17/24 08:02 04/17/24 10:57 Temperature 97.3 F L Pulse Rate 90 Respiratory Rate 22 H Blood Pressure 107/59 L Pulse Oximetry 94 99 Oxygen Delivery Room Air Room Air Fraction of Inspired Oxygen 21 H&P: Results Labs Labs: Short CBC 04/16/24 04/17/24 04/17/24 Range/Units 19:16 00:08 05:28 WBC 8.2 (4.5-10.0) K/mm3 Hgb 8.8 L 8.6 L 7.6 L (14.0-18.0) g/dL Hct 29.1 L 28.2 L 25.8 L (42.0-52.0) % Plt Count 398 H (150-375) k/mm3 04/17/24 Range/Units 07:49 WBC 5.8 (4.5-10.0) K/mm3 Hgb 7.6 L (14.0-18.0) g/dL Hct 25.2 L (42.0-52.0) % Plt Count 359 (150-375) k/mm3 BMP 04/16/24 04/17/24 19:16 07:49 Sodium 138 140 Potassium 3.6 3.3 L Chloride 103 110 H Carbon Dioxide 27 25 BUN 22 H 18 Creatinine 0.50 L 0.40 L Glucose 130 H 96 Calcium 8.1 L 7.8 L Liver Function 04/16/24 04/17/24 Range/Units 19:16 07:49 Total Bilirubin 0.6 0.4 (0.2-1.3) mg/dL AST 69 H 52 (17-59) U/L ALT 36 28 (6-50) U/L Alkaline Phosphatase 141 H 115 (38-126) U/L Albumin 2.9 L 2.5 L (3.5-5.1) g/dL Urine 04/16/24 Range/Units
[2024-04-17] MEDS: KCL 20 MEQ/SW 100 ML 100 ML 50 MEQ IVPB (13:06)
[2024-04-17] MEDS: VANCOMYCIN 1,250 MG/NS 250 ML 1,250 MG/250 ML BAG 166.67 MG IVPB (16:16)
[2024-04-17] MEDS: COLLAGENASE OINT 30 GM TUBE 1 APPLIC TOPICAL (16:19)
--- NOTE | 2024-04-17 16:52 | PM.CNGS ---
Assessment and Plan Assessment and plan (1) Pressure ulcer of left buttock: Qualifiers: Pressure injury stage: unstageable Qualified Code(s): L89.320 - Pressure ulcer of left buttock, unstageable Code(s): L89.329 - Pressure ulcer of left buttock, unspecified stage Status: Acute Assessment and Plan: I reviewed the CT and assessed the patient. He has a pressure injury on his left buttock region. There is a necrotic eschar on the surface but the surrounding and deeper tissue appears likely intact. Agree with current treatment with Santyl ointment applied daily. Will monitor for any significant changes that would require surgical debridement. Continue limiting pressure to this side and frequent position changes in bed. (2) Seizure disorder: Code(s): G40.909 - Epilepsy, unspecified, not intractable, without status epilepticus Status: Acute (3) Gait disturbance: Code(s): R26.9 - Unspecified abnormalities of gait and mobility Status: Acute History of Present Illness Consult details Consult date: 04/17/24 Reason for consult: other (Left gluteal decubitus ulcer) Requesting physician: Jocy Gray APRN Narrative: This is a 69-year-old man who I am asked to see for a left gluteal pressure ulcer. He is only oriented x1 and does not offer any history. The chart is reviewed to obtain full history. He presented to the emergency department 2 days ago for coffee-ground emesis and was admitted for further workup and treatment. He underwent EGD today and no source of upper GI bleeding was identified. He was also sent down to CT this afternoon because of a left gluteal wound. The wound care nurses have evaluated patient and orders are in place for Santyl treatments. Patient is confined to the bed. He was transferred from an outside senior care facility. Review of Systems Review of Systems: ROS unobtainable: Yes unobtainable due to medical condition and unobtainable due to mental status PMFSH Past Medical History Medical History (Updated 04/17/24 @ 17:04 by Akira Vargas DO) Bipolar disorder Pulmonary hypertension Vascular dementia Surgical History Surgical History No pertinent past surgical history Family History Family History (Updated 04/16/24 @ 23:45 by Domonique Castro RN) Father Hypertension Mother Lung cancer Diabetes mellitus Sibling Diabetes mellitus Cancer Hypertension Social History Social History Smoking status: Never smoker Alcohol intake: never Substance use: never Spiritual care concerns: No Meds Home Medications and Allergies Home Medications Medication Instructions Recorded Confirmed Type aripiprazole 20 mg tablet 20 mg PO DAILY 04/17/24 04/17/24 History escitalopram oxalate 10 mg tablet 10 mg PO .EVERY04/17/24 04/17/24 History furosemide 20 mg tablet 20 mg PO .04/17/24 04/17/24 History polyethylene glycol 3350 17 17 g PO DAILY PRN Constipation 04/17/24 04/17/24 History gram/dose oral powder simvastatin 20 mg tablet 20 mg PO HS 04/17/24 04/17/24 History trazodone 50 mg tablet 50 mg PO HS 04/17/24 04/17/24 History valproic acid (as sodium salt) 250 250 mg PO Q12H 04/17/24 04/17/24 History mg/5 mL syringe (FOR ORAL USE ONLY) Allergies Allergy/AdvReac Type Severity Reaction Status Date / Time No Known Allergies Allergy Verified 04/16/24 19:09 Vital Signs Vital Signs - 24 hr 04/16/24 18:42 04/16/24 19:03 04/16/24 20:23 Temperature 97.7 F Pulse Rate 90 96 Respiratory Rate 14 16 Blood Pressure 94/63 L 98/58 L Pulse Oximetry 96 96 Oxygen Delivery Fraction of Inspired Oxygen 04/16/24 19:01 04/16/24 23:14 04/16/24 23:30 Temperature 98.5 F Pulse Rate 94 97 Respiratory Rate 20 20 Blood Pressure 94/63 L 99/52 L Pulse Oximetry 98 99 Ox
[2024-04-17 17:06] LABS: Hematocrit 27.2 % (42.0-52.0); Hemoglobin 7.9 g/dL (14.0-18.0)
[2024-04-17 17:18] LABS: Lactic Acid Reflex 0.9 mmol/L (0.7-2.0)
[2024-04-17 17:22] LABS: CRP 5.6 mg/dL (<1.0)
[2024-04-17 18:47] LABS: Erythrocyte Sedimentation Rate > 140 mm/hr (0-20)
--- NOTE | 2024-04-17 20:34 | WPDGIPROGNO ---
Progress Note: A&P Assessment and Plan (1) Coffee ground emesis: Code(s): K92.0 - Hematemesis Status: Acute (2) Hiatal hernia: Code(s): K44.9 - Diaphragmatic hernia without obstruction or gangrene Status: Acute Plan Will sign off for now, please let us know if there is any other GI related problem. thank you for the consultation. Time Spent With Patient Time with patient: less than 15 minutes Subjective Date/time seen: 04/17/24 20:34 Interval history: The patient did not have gastroesophageal or duodenal lesions, other than a small no complicated hiatal hernia. Besides standard anti reflux measures, no further recommendations can be mede at this time. Please let us know if we can be of further assistance. Review of Systems Review of Systems: All systems reviewed & are unremarkable except as noted in HPI and below Objective Data Vital Signs Vital Signs: Vital Signs - 24 hr 04/16/24 23:14 04/16/24 23:30 04/17/24 00:00 Temperature 98.5 F Pulse Rate 97 98 Respiratory Rate 20 Blood Pressure 99/52 L Pulse Oximetry 99 Oxygen Delivery Room Air Fraction of Inspired Oxygen 04/17/24 04:57 04/17/24 04:00 04/17/24 08:02 Temperature 98.1 F Pulse Rate 90 93 Respiratory Rate 24 H Blood Pressure 95/46 L Pulse Oximetry 94 94 Oxygen Delivery Room Air Fraction of Inspired Oxygen 21 04/17/24 10:57 04/17/24 08:00 04/17/24 12:29 Temperature 97.3 F L Pulse Rate 90 89 Respiratory Rate 22 H 25 H Blood Pressure 107/59 L 119/68 Pulse Oximetry 99 99 Oxygen Delivery Room Air Room Air Room Air Fraction of Inspired Oxygen 04/17/24 12:39 04/17/24 12:49 04/17/24 14:00 Temperature 98.1 F Pulse Rate 94 96 85 Respiratory Rate 17 20 22 H Blood Pressure 120/71 108/63 108/46 L Pulse Oximetry 99 99 97 Oxygen Delivery Room Air Room Air Fraction of Inspired Oxygen 04/17/24 20:06 Temperature 97.5 F L Pulse Rate 83 Respiratory Rate 20 Blood Pressure 101/49 L Pulse Oximetry 93 Oxygen Delivery Fraction of Inspired Oxygen Intake/Output Intake/Output: Intake & Output 04/14/24 04/15/24 04/16/24 04/17/24 23:59 23:59 23:59 23:59 Intake Total 1000 2580 Output Total 850 Balance 1000 1730 Meds/Results Medications: Active Medications Generic Name Dose Route Start Last Admin Trade Name Frecarlo PRN Reason Stop Dose Admin Aripiprazole 20 mg 04/17/24 09:00 04/17/24 08:57 Aripiprazole 10 Mg Tablet PO 05/17/24 08:59 20 mg DAILY YEN Administration Collagenase 1 applic 04/17/24 09:00 04/17/24 16:19 Collagenase Oint 30 Gm Tube TOPICAL 1 applic QAM YEN Administration Escitalopram Oxalate 10 mg 04/18/24 09:00 Escitalopram Oxalate 10 Mg Tablet PO Q48H YEN Ferrous Sulfate 325 mg 04/17/24 09:00 04/17/24 08:57 Ferrous Sulfate [address] PO 325 mg DAILY YEN Administration Ceftriaxone Sodium 1 gm in 50 mls @ 100 mls/hr 04/17/24 03:00 04/17/24 04:12 Rocephin 1 Gm/Ns 50 Ml IVPB Infused Q24H YEN Infusion Vancomycin HCl 1,250 mg in 250 mls @ 166.667 mls/hr 04/17/24 16:00 04/17/24 17:46 Vancomycin 1,250 Mg/Ns 250 Ml IVPB Infused Q12H YEN Infusion Pantoprazole Sodium 40 mg 04/17/24 09:00 04/17/24 08:57 Pantoprazole Sodium Iv 40 Mg Vial IV PUSH 40 mg Q12HR YEN Administration Polyethylene Glycol 17 gm 04/17/24 02:20 Polyethylene Glycol 3350 17 Gm Powd.Pack PO DAILY PRN Constipation Simvastatin 20 mg 04/17/24 21:00 Simvastatin 20 Mg Tablet PO HS EYN Trazodone HCl 50 mg 04/17/24 21:00 Trazodone Hcl 50 Mg Tablet PO HS YEN Valproate Sodium 250 mg 04/17/24 09:00 04/17/24 08:57 Valproic Acid Liq 250 Mg/5 Ml Oral Solution Udc PO 250 mg Q12HR YEN Administration Radiology Results: ITS Impressions Chest X-Ray 04/16/24 19:55 IMPRESSION: Cardiomegaly with congestive jonnathan. Bilateral interstitial changes suggestiv
[2024-04-17] MEDS: SIMVASTATIN 20 MG TABLET PO (21:03)
[2024-04-17] MEDS: traZODone HCL 50 MG TABLET PO (21:03)
--- NOTE | 2024-04-17 22:51 | PC.NURSE ---
LVM to Sabrina Argueta @1317 regarding pt's urine culture preliminary results. Preliminary results show pt is growing gram neg bacilli isolated. Pt is on IV Rocephin and vancomycin.
[2024-04-18] MEDS: VANCOMYCIN 1,250 MG/NS 250 ML 1,250 MG/250 ML BAG 166.67 MG IVPB ×2 (03:24→16:55)
[2024-04-18 05:25] VITALS: BP 108/46; PULSE 97; RESP 16; TEMP 36.6; O2SAT 95
[2024-04-18 06:07] LABS: Basophils Percent Auto 0.2 % (0.2-1.2); Eosinophils Absolute Auto 0.4 K/mm3 (0-0.3); Eosinophils Percent Auto 7.8 % (0-4.4); Hematocrit 24.9 % (42.0-52.0); Hemoglobin 7.4 g/dL (14.0-18.0); Immature Granulocyte Percent A 1.9 % (0-0.5); Lymphocytes Absolute Auto 1.31 K/mm3 (0.9-3.2); Lymphocytes Percent Auto 24.9 % (18.3-44.2); Mean Corpuscular HGB Conc 29.7 g/dl (32-36); Mean Corpuscular Hemoglobin 26.1 pg (26-34); Mean Corpuscular Volume 87.7 fl (80-100); Mean Platelet Volume 8.4 fl (7.4-10.4); Monocytes Absolute Auto 0.4 K/mm3 (0.1-0.6); Monocytes Percent Auto 8.2 % (2.6-8.5); Platelet Count Result 374 k/mm3 (150-375); Red Blood Count 2.84 M/mm3 (4.6-6.20); Red Cell Distribution Width 15.4 % (11.5-14.5); White Blood Count 5.3 K/mm3 (4.5-10.0)
[2024-04-18 06:19] LABS: Anion Gap 6 mmol/L (4-12); Blood Urea Nitrogen 10 mg/dL (9-20); Carbon Dioxide 25 mmol/L (22-30); Chloride 107 mmol/L (98-107); Potassium 3.3 mmol/L (3.4-5.0); Sodium 138 mmol/L (137-145)
[2024-04-18 06:20] LABS: Alanine Aminotransferase 29 U/L (6-50); Albumin Level 2.4 g/dL (3.5-5.1); Alkaline Phosphatase 121 U/L (38-126); Aspartate Amino Transferase 55 U/L (17-59); Bilirubin,Total 0.4 mg/dL (0.2-1.3); CRP 7.6 mg/dL (<1.0); Calcium 7.8 mg/dL (8.4-10.2); Estimated CRCL calculation 164 ml/min; Estimated Glomerular Filt Rate > 60; Glucose 93 mg/dL (65-110); Magnesium 1.7 mg/dL (1.6-2.3)
[2024-04-18 07:12] LABS: Anisocytosis 2+; Hypochromasia 1+; Platelet Estimate Slightly Increased (Adequate); Schistocytes None Seen
[2024-04-18 08:00] VITALS: O2SAT 96
[2024-04-18] MEDS: ARIPiprazole 10 MG TABLET 20 MG PO (09:24)
[2024-04-18] MEDS: COLLAGENASE OINT 30 GM TUBE 1 APPLIC TOPICAL (09:25)
[2024-04-18] MEDS: FERROUS SULFATE 325 MG TABLET DR PO (09:25)
[2024-04-18] MEDS: ESCITALOPRAM OXALATE 10 MG TABLET PO (09:25)
[2024-04-18] MEDS: VALPROIC ACID LIQ 250 MG/5 ML ORAL SOLUTION UDC PO ×2 (09:25→21:10)
[2024-04-18] MEDS: POTASSIUM CHLORIDE 20 MEQ ER TABLET 40 MEQ PO (09:25)
[2024-04-18] MEDS: PANTOPRAZOLE SODIUM IV 40 MG VIAL IV PUSH ×2 (09:25→21:10)
--- NOTE | 2024-04-18 12:14 | P.PNIM_ITS ---
Progress Note: A&P Assessment and Plan (1) Occult GI bleeding: Code(s): R19.5 - Other fecal abnormalities Status: Acute Assessment and Plan: Reports of coffee ground emesis at custodial. No obvious signs of bleeding on exam. Not on anticoagulation. Blood pressures have been soft 95/46, 90 HR. * Hemoglobin 8.8 g/dl on admission, hgb 7.4 g/dl this morning * BUN 10 * Anemia panel: Iron 22, TIBC 191, Saturation 12%, vitamin B12 and folate normal * Occult blood pending collection * Trend H/H, transfuse for Hemoglobin less than 7 g/dl * IV Venofer x 1 and start on Iron supplement daily * GI consulted, rec's are appreciated (2) Wound of gluteal cleft: Code(s): S31.809A - Unspecified open wound of unspecified buttock, initial encounter Status: Acute Assessment and Plan: Wound to left gluteal clef unstageable wound with surrounding erythema with puru lent drainage. Patient resides in a custodial and is total care at [facility]. * CT abdomen and pelvis w contrast now * WBC normal, lactic pending * On Rocephin for UTI, added Vancomycin * CRP 7.6, ESR >140. * Turn Q 2 hours, frequent repositioning * Wound care consulted. For now daily wound care with Santyl, adaptic, and ABD daily and as needed for soiled dressing. * General surgery consulted as this may need to be debrided, recs appreciated (3) UTI (urinary tract infection): Code(s): N39.0 - Urinary tract infection, site not specified Status: Acute Assessment and Plan: Chronic Hagan catheter. U/A on admission showed turbid dark yellow urine with 3+ protein, trace ketones, 3+ blood 2 a day, RBC and WBC greater than 100, rare urine bacteria. * WBC normal, no neutrophils * Urine sent for culture. Suspect this is colonization. Urine culture preliminary showed Gram negative bacilli. * Obtain blood cultures if febrile greater than 100.4 * Make sure catheter was exchanged. * Started on Rocephin (4) Normochromic normocytic anemia: Code(s): D64.9 - Anemia, unspecified Status: Acute Assessment and Plan: Hemoglobin 7.4 g/dl, MCHC 29.7 * Anemia panel shows iron deficiency * Investigate upper GI bleed Subjective Date/time seen: 10/09/24 12:14 Interval history: Speech is garbled. Patient denies chest pain, palpitations, or shortness of breath. Review of Systems Review of Systems: All systems reviewed & are unremarkable except as noted in HPI and below Exam Const: General: comfortable and no acute distress Resp: Effort & Inspection: normal respiratory effort Auscultation: clear to auscultation bilaterally Cardio: Rate: regular rate Rhythm: regular rhythm Skin: Other: Pressure related injury to left buttocks with eschar wound bed and surrounding erythema. Skin warm and dry. Neuro: Other: Garbled speech. Extrem: General: pedal edema bilaterally (Trace edema.) Other: Bilateral foot drop Objective Data Vital Signs Vital Signs: Vital Signs - 24 hr 04/17/24 12:29 04/17/24 12:39 04/17/24 12:49 Temperature Pulse Rate 89 94 96 Respiratory Rate 25 H 17 20 Blood Pressure 119/68 120/71 108/63 Pulse Oximetry 99 99 99 Oxygen Delivery Room Air Room Air Room Air Fraction of Inspired Oxygen 04/17/24 14:00 04/17/24 20:06 04/17/24 20:5
--- NOTE | 2024-04-18 12:14 | PM.IMPN ---
Progress Note: A&P Assessment and Plan (1) Occult GI bleeding: Code(s): R19.5 - Other fecal abnormalities Status: Acute Assessment and Plan: Reports of coffee ground emesis at [facility]. No obvious signs of bleeding on exam. Not on anticoagulation. Blood pressures have been soft 95/46, 90 HR. Hemoglobin 8.8 g/dl on admission, hgb 7.4 g/dl this morning BUN 10 Anemia panel: Iron 22, TIBC 191, Saturation 12%, vitamin B12 and folate normal Occult blood pending collection Trend H/H, transfuse for Hemoglobin less than 7 g/dl IV Venofer x 1 and start on Iron supplement daily GI consulted, rec's are appreciated (2) Wound of gluteal cleft: Code(s): S31.809A - Unspecified open wound of unspecified buttock, initial encounter Status: Acute Assessment and Plan: Wound to left gluteal clef unstageable wound with surrounding erythema with purulent drainage. Patient resides in a [facility] and is total care at [facility]. CT abdomen and pelvis w contrast now WBC normal, lactic pending On Rocephin for UTI, added Vancomycin CRP 7.6, ESR >140. Turn Q 2 hours, frequent repositioning Wound care consulted. For now daily wound care with Santyl, adaptic, and ABD daily and as needed for soiled dressing. General surgery consulted as this may need to be debrided, recs appreciated (3) UTI (urinary tract infection): Code(s): N39.0 - Urinary tract infection, site not specified Status: Acute Assessment and Plan: Chronic Hagan catheter. U/A on admission showed turbid dark yellow urine with 3+ protein, trace ketones, 3+ blood 2 a day, RBC and WBC greater than 100, rare urine bacteria. WBC normal, no neutrophils Urine sent for culture. Suspect this is colonization. Urine culture preliminary showed Gram negative bacilli. Obtain blood cultures if febrile greater than 100.4 Make sure catheter was exchanged. Started on Rocephin (4) Normochromic normocytic anemia: Code(s): D64.9 - Anemia, unspecified Status: Acute Assessment and Plan: Hemoglobin 7.4 g/dl, MCHC 29.7 Anemia panel shows iron deficiency Investigate upper GI bleed Subjective Date/time seen: 04/18/24 12:14 Interval history: Speech is garbled. Patient denies chest pain, palpitations, or shortness of breath. Review of Systems Review of Systems: All systems reviewed & are unremarkable except as noted in HPI and below Exam Const: General: comfortable and no acute distress Resp: Effort & Inspection: normal respiratory effort Auscultation: clear to auscultation bilaterally Cardio: Rate: regular rate Rhythm: regular rhythm Skin: Other: Pressure related injury to left buttocks with eschar wound bed and surrounding erythema. Skin warm and dry. Neuro: Other: Garbled speech. Extrem: General: pedal edema bilaterally (Trace edema.) Other: Bilateral foot drop Objective Data Vital Signs Vital Signs: Vital Signs - 24 hr 04/17/24 12:29 04/17/24 12:39 04/17/24 12:49 Temperature Pulse Rate 89 94 96 Respiratory Rate 25 H 17 20 Blood Pressure 119/68 120/71 108/63 Pulse Oximetry 99 99 99 Oxygen Delivery Room Air Room Air Room Air Fraction of Inspired Oxygen 04/17/24 14:00 04/17/24 20:06 04/17/24 20:52 Temperature 98.1 F 97.5 F L Pulse Rate 85 83 Respiratory Rate 22 H 20 Blood Pressure 108/46 L 101/49 L Pulse Oximetry 97 93 Oxygen Delivery Room Air Fraction of Inspired Oxygen 04/18/24 05:25 04/18/24 08:00 Temperature 97.9 F Pulse Rate 97 Respiratory Rate 16 Blood Pressure 108/46 L Pulse Oximetry 95 96 Oxygen Delivery Room Air Fraction of Inspired Oxygen 21 Intake/Output Intake/Output: Intake & Output 04/15/24 04/16/24 04/17/24 04/18/24 23:59 23:59 23:59 23:59 Intake Total 1000 2580 780 Output Total 1750 350 Balance 1000 830 430 Meds/Results Medications: Active Medications Gener
[2024-04-18 14:00] VITALS: BP 102/53; PULSE 91; RESP 12; TEMP 36.3; O2SAT 100
[2024-04-18 20:11] VITALS: BP 123/53; PULSE 91; RESP 26; TEMP 36.7; O2SAT 100
[2024-04-18] MEDS: traZODone HCL 50 MG TABLET PO (21:10)
[2024-04-18] MEDS: SIMVASTATIN 20 MG TABLET PO (21:10)
[2024-04-18] MEDS: polyethylene glycoL 3350 17 GM POWD.PACK PO (21:40)
[2024-04-19 04:22] LABS: Basophils Percent Auto 0.5 % (0.2-1.2); Eosinophils Absolute Auto 0.5 K/mm3 (0-0.3); Eosinophils Percent Auto 8.8 % (0-4.4); Hematocrit 24.6 % (42.0-52.0); Hemoglobin 7.7 g/dL (14.0-18.0); Immature Granulocyte Absolute 0.21 K/mm3 (0.00-0.031); Immature Granulocyte Percent A 3.4 % (0-0.5); Lymphocytes Absolute Auto 1.87 K/mm3 (0.9-3.2); Lymphocytes Percent Auto 30.5 % (18.3-44.2); Mean Corpuscular HGB Conc 31.3 g/dl (32-36); Mean Corpuscular Volume 86.3 fl (80-100); Mean Platelet Volume 8.3 fl (7.4-10.4); Monocytes Absolute Auto 0.5 K/mm3 (0.1-0.6); Monocytes Percent Auto 7.8 % (2.6-8.5); Platelet Count Result 393 k/mm3 (150-375); Red Blood Count 2.85 M/mm3 (4.6-6.20); Red Cell Distribution Width 15.4 % (11.5-14.5); White Blood Count 6.1 K/mm3 (4.5-10.0)
[2024-04-19 04:25] LABS: Alanine Aminotransferase 30 U/L (6-50); Albumin Level 2.5 g/dL (3.5-5.1); Alkaline Phosphatase 121 U/L (38-126); Anion Gap 4 mmol/L (4-12); Aspartate Amino Transferase 53 U/L (17-59); Bilirubin,Total 0.4 mg/dL (0.2-1.3); Blood Urea Nitrogen 15 mg/dL (9-20); Calcium 7.9 mg/dL (8.4-10.2); Carbon Dioxide 26 mmol/L (22-30); Chloride 104 mmol/L (98-107); Estimated CRCL calculation 164 ml/min; Estimated Glomerular Filt Rate > 60; Glucose 106 mg/dL (65-110); Magnesium 1.6 mg/dL (1.6-2.3); Potassium 3.7 mmol/L (3.4-5.0); Sodium 134 mmol/L (137-145)
[2024-04-19 04:30] LABS: Vancomycin Trough 8.3 ug/mL (10.0-20.0)
[2024-04-19] MEDS: VANCOMYCIN 1,500 MG/NS 500 ML 1,500 MG/500 ML BAG 250 MG IVPB (04:57)
[2024-04-19 05:39] VITALS: BP 110/60; PULSE 91; RESP 26; TEMP 36.7; O2SAT 97
[2024-04-19] MEDS: VALPROIC ACID LIQ 250 MG/5 ML ORAL SOLUTION UDC PO ×2 (09:21→20:31)
[2024-04-19] MEDS: COLLAGENASE OINT 30 GM TUBE 1 APPLIC TOPICAL (09:21)
[2024-04-19] MEDS: FERROUS SULFATE 325 MG TABLET DR PO (09:21)
[2024-04-19] MEDS: PANTOPRAZOLE SODIUM IV 40 MG VIAL IV PUSH ×2 (09:21→20:31)
[2024-04-19] MEDS: ARIPiprazole 10 MG TABLET 20 MG PO (09:21)
[2024-04-19] MEDS: polyethylene glycoL 3350 17 GM POWD.PACK PO (09:35)
--- NOTE | 2024-04-19 10:22 | PCNFU ---
Nutrition Follow-Up Complete: Increased protein needs as related to wounds as evidenced by pressure ulcers reported. Goal: Meet estimated nutritional needs. Patient is progressing towards goal. We will continue current goal. Pt current nutrition is Pureed, Level 4 with Phillip BID. Last recorded weight is 88 kg, no new weight to report. Bowel Motility: No BM reported. Labs Reviewed:Cr 0.4, Na 134, Hct 24.6,Hgb 7.7,Alb 2.5 Meds Noted: Protonix, Lexapro, Miralax, Vancomycin Skin: unstageable pressure ulcer-left buttock Additional Notes: Patient had EGD 04/17. Diet order had advanced to a Pureed, Level 4. Eating > 75% of meals. Protein Modular of Phillip added BID for wound healing, providing an additional 90 kcal,2.5 gm protein, 7 gm glutamine, 7 gm arginine. Agree with diet orders. Will monitor weight, labs, skin, diet orders, meds every 5 days.
--- NOTE | 2024-04-19 11:06 | P.PNIM_ITS ---
Progress Note: A&P Assessment and Plan (1) UTI (urinary tract infection): Code(s): N39.0 - Urinary tract infection, site not specified Status: Acute Assessment and Plan: Chronic Hagan catheter. U/A on admission showed turbid dark yellow urine with 3+ protein, trace ketones, 3+ blood 2 a day, RBC and WBC greater than 100, rare urine bacteria. * WBC normal, no neutrophils * Urine sent for culture. Suspect this is colonization. Urine culture preliminary showed Gram negative bacilli. * Obtain blood cultures if febrile greater than 100.4 * Make sure catheter was exchanged. * Started on Rocephin, switch to oral antibiotics this evening- Augmentin and Doxycycline. * Monitor labs. (2) Wound of gluteal cleft: Code(s): S31.809A - Unspecified open wound of unspecified buttock, initial encounter Status: Acute Assessment and Plan: Wound to left gluteal clef unstageable wound with surrounding erythema with purulent drainage. Patient resides in a intermediate and is total care at [facility]. * CT abdomen and pelvis w contrast now * WBC normal, lactic 0.9 * CRP 7.6, ESR >140. * Turn Q 2 hours, frequent repositioning * Wound care consulted. For now daily wound care with Santyl, adaptic, and ABD daily and as needed for soiled dressing. * General surgery consulted as this may need to be debrided, recs appreciated (3) Occult GI bleeding: Code(s): R19.5 - Other fecal abnormalities Status: Acute Assessment and Plan: Reports of coffee ground emesis at intermediate. No obvious signs of bleeding on exam. Not on anticoagulation. Blood pressures have been soft 95/46, 90 HR. * Hemoglobin 8.8 g/dl on admission, hgb 7.7 g/dl this morning * BUN 15 * Anemia panel: Iron 22, TIBC 191, Saturation 12%, vitamin B12 and folate normal * Occult blood pending collection * Trend H/H, transfuse for Hemoglobin less than 7 g/dl * IV Venofer x 1 and start on Iron supplement daily * GI consulted, rec's are appreciated * EGD 04/17 showed: normal esophagus, stomach normal, small hiatal hernia. (4) Normochromic normocytic anemia: Code(s): D64.9 - Anemia, unspecified Status: Acute Assessment and Plan: * Anemia panel: Iron 22, TIBC 191, Saturation 12%, vitamin B12 and folate normal * Hemoglobin 7.7, hematocrit 24.6. (5) Bipolar disorder: Code(s): F31.9 - Bipolar disorder, unspecified Status: Acute Assessment and Plan: * continue home meds (6) Dementia: Code(s): F03.90 - Unspecified dementia, unspecified severity, without behavioral disturbance, psychotic disturbance, mood disturbance, and anxiety Status: Acute Assessment and Plan: * on aripiprazole Subjective Date/time seen: 04/19/24 11:06 Interval history: Speech is garbled. Patient denies chest pain, palpitations, dizziness, or shortness of breath. Review of Systems Review of Systems: All systems reviewed & are unremarkable except as noted in HPI and below Exam Const: General: comfortable and no acute distress Resp: Effort & Inspection: normal respiratory effort Auscultation: clear to auscultation bilaterally Cardio: Rate: regular rate Rhythm: regular rhythm Skin: Other: Pressure related injury to left buttocks with eschar wound bed and surrounding erythema. Skin warm and dry. Neuro: Other: Garbled speech. Extrem: General: pedal edema bilaterally (trace) Other: bilateral cezar
--- NOTE | 2024-04-19 11:06 | PM.IMPN ---
Progress Note: A&P Assessment and Plan (1) UTI (urinary tract infection): Code(s): N39.0 - Urinary tract infection, site not specified Status: Acute Assessment and Plan: Chronic Hagan catheter. U/A on admission showed turbid dark yellow urine with 3+ protein, trace ketones, 3+ blood 2 a day, RBC and WBC greater than 100, rare urine bacteria. WBC normal, no neutrophils Urine sent for culture. Suspect this is colonization. Urine culture preliminary showed Gram negative bacilli. Obtain blood cultures if febrile greater than 100.4 Make sure catheter was exchanged. Started on Rocephin, switch to oral antibiotics this evening- Augmentin and Doxycycline. Monitor labs. (2) Wound of gluteal cleft: Code(s): S31.809A - Unspecified open wound of unspecified buttock, initial encounter Status: Acute Assessment and Plan: Wound to left gluteal clef unstageable wound with surrounding erythema with purulent drainage. Patient resides in a half-way and is total care at [facility]. CT abdomen and pelvis w contrast now WBC normal, lactic 0.9 CRP 7.6, ESR >140. Turn Q 2 hours, frequent repositioning Wound care consulted. For now daily wound care with Santyl, adaptic, and ABD daily and as needed for soiled dressing. General surgery consulted as this may need to be debrided, recs appreciated (3) Occult GI bleeding: Code(s): R19.5 - Other fecal abnormalities Status: Acute Assessment and Plan: Reports of coffee ground emesis at [facility]. No obvious signs of bleeding on exam. Not on anticoagulation. Blood pressures have been soft 95/46, 90 HR. Hemoglobin 8.8 g/dl on admission, hgb 7.7 g/dl this morning BUN 15 Anemia panel: Iron 22, TIBC 191, Saturation 12%, vitamin B12 and folate normal Occult blood pending collection Trend H/H, transfuse for Hemoglobin less than 7 g/dl IV Venofer x 1 and start on Iron supplement daily GI consulted, rec's are appreciated EGD 04/17 showed: normal esophagus, stomach normal, small hiatal hernia. (4) Normochromic normocytic anemia: Code(s): D64.9 - Anemia, unspecified Status: Acute Assessment and Plan: Anemia panel: Iron 22, TIBC 191, Saturation 12%, vitamin B12 and folate normal Hemoglobin 7.7, hematocrit 24.6. (5) Bipolar disorder: Code(s): F31.9 - Bipolar disorder, unspecified Status: Acute Assessment and Plan: continue home meds (6) Dementia: Code(s): F03.90 - Unspecified dementia, unspecified severity, without behavioral disturbance, psychotic disturbance, mood disturbance, and anxiety Status: Acute Assessment and Plan: on aripiprazole Subjective Date/time seen: 04/19/24 11:06 Interval history: Speech is garbled. Patient denies chest pain, palpitations, dizziness, or shortness of breath. Review of Systems Review of Systems: All systems reviewed & are unremarkable except as noted in HPI and below Exam Const: General: comfortable and no acute distress Resp: Effort & Inspection: normal respiratory effort Auscultation: clear to auscultation bilaterally Cardio: Rate: regular rate Rhythm: regular rhythm Skin: Other: Pressure related injury to left buttocks with eschar wound bed and surrounding erythema. Skin warm and dry. Neuro: Other: Garbled speech. Extrem: General: pedal edema bilaterally (trace) Other: bilateral foot drop Objective Data Vital Signs Vital Signs: Vital Signs - 24 hr 04/18/24 14:00 04/18/24 20:11 04/18/24 21:00 Temperature 97.4 F L 98.1 F Pulse Rate 91 91 Respiratory Rate 12 26 H Blood Pressure 102/53 L 123/53 L Pulse Oximetry 100 100 Oxygen Delivery Room Air 04/19/24 05:39 04/19/24 09:36 Temperature 98.1 F Pulse Rate 91 Respiratory Rate 26 H Blood Pressure 110/60 Pulse Oximetry 97 Oxygen Delivery Room Air Intake/Output Intake/Output: Intake & Outpu
[2024-04-19 14:00] VITALS: BP 108/52; PULSE 84; RESP 16; TEMP 36.4; O2SAT 99
[2024-04-19 20:19] VITALS: BP 103/54; PULSE 81; RESP 18; TEMP 36.9; O2SAT 101
[2024-04-19] MEDS: DOXYCYCLINE HYCLATE 100 MG TABLET PO (20:31)
[2024-04-19] MEDS: AMOXICILLIN/CLAVULANATE K 875-125 MG TAB 1 TABLET PO (20:31)
[2024-04-19] MEDS: traZODone HCL 50 MG TABLET PO (20:31)
[2024-04-19] MEDS: SIMVASTATIN 20 MG TABLET PO (20:31)
[2024-04-20 04:26] VITALS: BP 110/53; PULSE 75; RESP 20; TEMP 36.6; O2SAT 94
[2024-04-20 04:27] VITALS: BP 110/53; PULSE 75; RESP 20; TEMP 36.6; O2SAT 94
[2024-04-20 04:36] LABS: Basophils Percent Auto 0.5 % (0.2-1.2); Eosinophils Absolute Auto 0.5 K/mm3 (0-0.3); Eosinophils Percent Auto 9.1 % (0-4.4); Hematocrit 25.4 % (42.0-52.0); Hemoglobin 7.9 g/dL (14.0-18.0); Immature Granulocyte Absolute 0.14 K/mm3 (0.00-0.031); Immature Granulocyte Percent A 2.4 % (0-0.5); Lymphocytes Absolute Auto 1.53 K/mm3 (0.9-3.2); Lymphocytes Percent Auto 26.3 % (18.3-44.2); Mean Corpuscular HGB Conc 31.1 g/dl (32-36); Mean Corpuscular Hemoglobin 26.7 pg (26-34); Mean Corpuscular Volume 85.8 fl (80-100); Mean Platelet Volume 8.3 fl (7.4-10.4); Monocytes Absolute Auto 0.5 K/mm3 (0.1-0.6); Monocytes Percent Auto 8.2 % (2.6-8.5); Neutrophils Absolute Auto 3.1 K/mm3 (1.3-6.7); Neutrophils Percent Auto 53.5 % (45.5-73.1); Platelet Count Result 418 k/mm3 (150-375); Red Blood Count 2.96 M/mm3 (4.6-6.20); Red Cell Distribution Width 15.4 % (11.5-14.5); White Blood Count 5.8 K/mm3 (4.5-10.0)
[2024-04-20 04:48] LABS: Alanine Aminotransferase 29 U/L (6-50); Albumin Level 2.6 g/dL (3.5-5.1); Alkaline Phosphatase 110 U/L (38-126); Anion Gap 4 mmol/L (4-12); Aspartate Amino Transferase 49 U/L (17-59); Bilirubin,Total 0.3 mg/dL (0.2-1.3); Blood Urea Nitrogen 11 mg/dL (9-20); Calcium 8.1 mg/dL (8.4-10.2); Carbon Dioxide 29 mmol/L (22-30); Chloride 104 mmol/L (98-107); Estimated CRCL calculation 210 ml/min; Estimated Glomerular Filt Rate > 60; Glucose 99 mg/dL (65-110); Magnesium 1.7 mg/dL (1.6-2.3); Potassium 3.5 mmol/L (3.4-5.0); Sodium 137 mmol/L (137-145)
[2024-04-20] MEDS: PANTOPRAZOLE SODIUM IV 40 MG VIAL IV PUSH ×2 (10:26→21:04)
[2024-04-20] MEDS: AMOXICILLIN/CLAVULANATE K 875-125 MG TAB 1 TABLET PO ×2 (10:27→21:04)
[2024-04-20] MEDS: ARIPiprazole 10 MG TABLET 20 MG PO (10:27)
[2024-04-20] MEDS: VALPROIC ACID LIQ 250 MG/5 ML ORAL SOLUTION UDC PO ×2 (10:27→21:04)
[2024-04-20] MEDS: COLLAGENASE OINT 30 GM TUBE 1 APPLIC TOPICAL (10:27)
[2024-04-20] MEDS: ESCITALOPRAM OXALATE 10 MG TABLET PO (10:27)
[2024-04-20] MEDS: polyethylene glycoL 3350 17 GM POWD.PACK PO (10:27)
[2024-04-20] MEDS: DOXYCYCLINE HYCLATE 100 MG TABLET PO ×2 (10:27→21:04)
--- NOTE | 2024-04-20 13:19 | P.PNIM_ITS ---
Progress Note: A&P Assessment and Plan (1) UTI (urinary tract infection): Code(s): N39.0 - Urinary tract infection, site not specified Status: Acute Assessment and Plan: Chronic Hagan catheter. U/A on admission showed turbid dark yellow urine with 3+ protein, trace ketones, 3+ blood 2 a day, RBC and WBC greater than 100, rare urine bacteria. * WBC normal, no neutrophils * Urine sent for culture. Suspect this is colonization. Urine culture preliminary showed Gram negative bacilli. * Obtain blood cultures if febrile greater than 100.4 * Make sure catheter was exchanged. * Started on Rocephin, switch to oral antibiotics this evening- Augmentin and Doxycycline. * Monitor labs. (2) Constipation: Code(s): K59.00 - Constipation, unspecified Status: Acute Assessment and Plan: * KUB today showed FINDINGS: Redemonstration of fecal stasis distending the rectum. Significantly enlarged air opacified stomach. Scattered loops small bowel without deonna dilatation. IMPRESSION: Findings suggesting impaction, as detailed above. * soap suds enema and docusate/ senna 2 tabs daily, first now. Patient has also been receiving Miralax. * Encourage water intake. (3) Wound of gluteal cleft: Code(s): S31.809A - Unspecified open wound of unspecified buttock, initial encounter Status: Acute Assessment and Plan: Wound to left gluteal clef unstageable wound with surrounding erythema with purulent drainage. Patient resides in a senior living and is total care at [facility]. * CT abdomen and pelvis w contrast now * WBC normal, lactic 0.9 * CRP 7.6, ESR >140. * Turn Q 2 hours, frequent repositioning * Wound care consulted. For now daily wound care with Santyl, adaptic, and ABD daily and as needed for soiled dressing. * General surgery consulted as this may need to be debrided, recs appreciated (4) Occult GI bleeding: Code(s): R19.5 - Other fecal abnormalities Status: Acute Assessment and Plan: Reports of coffee ground emesis at senior living. No obvious signs of bleeding on exam. Not on anticoagulation. Blood pressures have been soft 95/46, 90 HR. * Hemoglobin 8.8 g/dl on admission, hgb 7.9 g/dl this morning * BUN 15 * Anemia panel: Iron 22, TIBC 191, Saturation 12%, vitamin B12 and folate normal * Occult blood pending collection * Trend H/H, transfuse for Hemoglobin less than 7 g/dl * IV Venofer x 1 and start on Iron supplement daily * GI consulted, rec's are appreciated * EGD 04/17 showed: normal esophagus, stomach normal, small hiatal hernia. (5) Normochromic normocytic anemia: Code(s): D64.9 - Anemia, unspecified Status: Acute Assessment and Plan: * Anemia panel: Iron 22, TIBC 191, Saturation 12%, vitamin B12 and folate normal * Hemoglobin 7.9, hematocrit 25.4. Subjective Date/time seen: 04/20/24 13:19 Interval history: Patient reports that he needs to poop. Patient denies nausea, vomiting, or abdominal pain. Review of Systems Review of Systems: All systems reviewed & are unremarkable except as noted in HPI and below Exam Const: General: no acute distress Resp: Effort & Inspection: normal respiratory effort Auscultation: clear to auscultation bilaterally Cardio: Rate: regular rate Rhythm: regular rhythm GI: Other: semi firm and slightlydistended. BS+ lower abdomen and decreased in the upper abdomen. Skin: Other: Pressure related injury to left
--- NOTE | 2024-04-20 13:19 | PM.IMPN ---
Progress Note: A&P Assessment and Plan (1) UTI (urinary tract infection): Code(s): N39.0 - Urinary tract infection, site not specified Status: Acute Assessment and Plan: Chronic Hagan catheter. U/A on admission showed turbid dark yellow urine with 3+ protein, trace ketones, 3+ blood 2 a day, RBC and WBC greater than 100, rare urine bacteria. WBC normal, no neutrophils Urine sent for culture. Suspect this is colonization. Urine culture preliminary showed Gram negative bacilli. Obtain blood cultures if febrile greater than 100.4 Make sure catheter was exchanged. Started on Rocephin, switch to oral antibiotics this evening- Augmentin and Doxycycline. Monitor labs. (2) Constipation: Code(s): K59.00 - Constipation, unspecified Status: Acute Assessment and Plan: KUB today showed FINDINGS: Redemonstration of fecal stasis distending the rectum. Significantly enlarged air opacified stomach. Scattered loops small bowel without deonna dilatation. IMPRESSION: Findings suggesting impaction, as detailed above. soap suds enema and docusate/ senna 2 tabs daily, first now. Patient has also been receiving Miralax. Encourage water intake. (3) Wound of gluteal cleft: Code(s): S31.809A - Unspecified open wound of unspecified buttock, initial encounter Status: Acute Assessment and Plan: Wound to left gluteal clef unstageable wound with surrounding erythema with purulent drainage. Patient resides in a detention and is total care at [facility]. CT abdomen and pelvis w contrast now WBC normal, lactic 0.9 CRP 7.6, ESR >140. Turn Q 2 hours, frequent repositioning Wound care consulted. For now daily wound care with Santyl, adaptic, and ABD daily and as needed for soiled dressing. General surgery consulted as this may need to be debrided, recs appreciated (4) Occult GI bleeding: Code(s): R19.5 - Other fecal abnormalities Status: Acute Assessment and Plan: Reports of coffee ground emesis at detention. No obvious signs of bleeding on exam. Not on anticoagulation. Blood pressures have been soft 95/46, 90 HR. Hemoglobin 8.8 g/dl on admission, hgb 7.9 g/dl this morning BUN 15 Anemia panel: Iron 22, TIBC 191, Saturation 12%, vitamin B12 and folate normal Occult blood pending collection Trend H/H, transfuse for Hemoglobin less than 7 g/dl IV Venofer x 1 and start on Iron supplement daily GI consulted, rec's are appreciated EGD 04/17 showed: normal esophagus, stomach normal, small hiatal hernia. (5) Normochromic normocytic anemia: Code(s): D64.9 - Anemia, unspecified Status: Acute Assessment and Plan: Anemia panel: Iron 22, TIBC 191, Saturation 12%, vitamin B12 and folate normal Hemoglobin 7.9, hematocrit 25.4. Subjective Date/time seen: 04/20/24 13:19 Interval history: Patient reports that he needs to poop. Patient denies nausea, vomiting, or abdominal pain. Review of Systems Review of Systems: All systems reviewed & are unremarkable except as noted in HPI and below Exam Const: General: no acute distress Resp: Effort & Inspection: normal respiratory effort Auscultation: clear to auscultation bilaterally Cardio: Rate: regular rate Rhythm: regular rhythm GI: Other: semi firm and slightlydistended. BS+ lower abdomen and decreased in the upper abdomen. Skin: Other: Pressure related injury to left buttocks with eschar wound bed and surrounding erythema. Skin warm and dry. Neuro: Other: Garbled speech Extrem: General: pedal edema bilaterally (trace) Other: bilateral foot drop Objective Data Vital Signs Vital Signs: Vital Signs - 24 hr 04/19/24 14:00 04/19/24 20:19 04/19/24 20:00 Temperature 97.6 F 98.5 F Pulse Rate 84 81 Respiratory Rate 16 18 Blood Pressure 108/52 L 103/54 L Pulse Oximetry 99 101 H Oxygen Delivery Room Air 04/10
[2024-04-20 14:00] VITALS: BP 125/58; PULSE 70; RESP 19; TEMP 36.2; O2SAT 95
[2024-04-20] MEDS: FERROUS SULFATE 325 MG TABLET DR PO (15:06)
[2024-04-20] MEDS: SENNA/DOCUSATE SODIUM TABLET 2 TAB PO (15:06)
[2024-04-20 20:48] VITALS: BP 109/60; PULSE 95; RESP 18; TEMP 36.4; O2SAT 98
[2024-04-20 21:00] LABS: Glucose Point of Care 125 mg/dl (65-105)
[2024-04-20] MEDS: traZODone HCL 50 MG TABLET PO (21:04)
[2024-04-20] MEDS: SIMVASTATIN 20 MG TABLET PO (21:04)
[2024-04-21 05:35] LABS: Basophils Percent Auto 0.6 % (0.2-1.2); Eosinophils Absolute Auto 0.3 K/mm3 (0-0.3); Eosinophils Percent Auto 4.5 % (0-4.4); Hematocrit 26.3 % (42.0-52.0); Immature Granulocyte Absolute 0.13 K/mm3 (0.00-0.031); Lymphocytes Absolute Auto 1.51 K/mm3 (0.9-3.2); Lymphocytes Percent Auto 23.6 % (18.3-44.2); Mean Corpuscular HGB Conc 30.4 g/dl (32-36); Mean Corpuscular Hemoglobin 26.1 pg (26-34); Mean Corpuscular Volume 85.9 fl (80-100); Monocytes Absolute Auto 0.5 K/mm3 (0.1-0.6); Monocytes Percent Auto 8.1 % (2.6-8.5); Neutrophils Absolute Auto 3.9 K/mm3 (1.3-6.7); Neutrophils Percent Auto 61.2 % (45.5-73.1); Platelet Count Result 460 k/mm3 (150-375); Red Blood Count 3.06 M/mm3 (4.6-6.20); Red Cell Distribution Width 15.7 % (11.5-14.5); White Blood Count 6.4 K/mm3 (4.5-10.0)
[2024-04-21 05:48] LABS: Alanine Aminotransferase 22 U/L (6-50); Albumin Level 2.6 g/dL (3.5-5.1); Alkaline Phosphatase 126 U/L (38-126); Anion Gap 5 mmol/L (4-12); Aspartate Amino Transferase 35 U/L (17-59); Bilirubin,Total 0.4 mg/dL (0.2-1.3); Blood Urea Nitrogen 13 mg/dL (9-20); Calcium 8.3 mg/dL (8.4-10.2); Carbon Dioxide 29 mmol/L (22-30); Chloride 101 mmol/L (98-107); Estimated CRCL calculation 164 ml/min; Estimated Glomerular Filt Rate > 60; Glucose 110 mg/dL (65-110); Magnesium 1.7 mg/dL (1.6-2.3); Potassium 3.5 mmol/L (3.4-5.0); Sodium 135 mmol/L (137-145)
[2024-04-21 05:50] VITALS: BP 102/57; PULSE 93; RESP 18; TEMP 36.5; O2SAT 96
[2024-04-21 08:00] VITALS: PULSE 93; RESP 18; O2SAT 96
[2024-04-21] MEDS: ARIPiprazole 10 MG TABLET 20 MG PO (08:42)
[2024-04-21] MEDS: SENNA/DOCUSATE SODIUM TABLET 2 TAB PO (08:42)
[2024-04-21] MEDS: AMOXICILLIN/CLAVULANATE K 875-125 MG TAB 1 TABLET PO ×2 (08:42→20:32)
[2024-04-21] MEDS: DOXYCYCLINE HYCLATE 100 MG TABLET PO ×2 (08:43→20:31)
[2024-04-21] MEDS: COLLAGENASE OINT 30 GM TUBE 1 APPLIC TOPICAL (08:43)
[2024-04-21] MEDS: PANTOPRAZOLE SODIUM IV 40 MG VIAL IV PUSH ×2 (08:43→20:32)
[2024-04-21] MEDS: VALPROIC ACID LIQ 250 MG/5 ML ORAL SOLUTION UDC PO ×2 (08:43→20:31)
--- NOTE | 2024-04-21 11:26 | P.PNIM_ITS ---
Progress Note: A&P Assessment and Plan (1) UTI (urinary tract infection): Code(s): N39.0 - Urinary tract infection, site not specified Status: Acute Assessment and Plan: Chronic Hagan catheter. U/A on admission showed turbid dark yellow urine with 3+ protein, trace ketones, 3+ blood 2 a day, RBC and WBC greater than 100, rare urine bacteria. * WBC normal, no neutrophils * Urine sent for culture. Suspect this is colonization. Urine culture preliminary showed klebsiella pneumoniae * Obtain blood cultures if febrile greater than 100.4 * Make sure catheter was exchanged. * Started on Rocephin, switch to oral antibiotics on 04/19/24- Augmentin and Doxycycline. * Monitor labs. (2) Constipation: Code(s): K59.00 - Constipation, unspecified Status: Acute Assessment and Plan: * KUB 04/20/24 showed FINDINGS: Redemonstration of fecal stasis distending the rectum. Significantly enlarged air opacified stomach. Scattered loops small bowel without deonna dilatation. IMPRESSION: Findings suggesting impaction, as detailed above. * soap suds enema yesterday with bowel movement x 2. * Continue docusate/ senna 2 tabs daily. Patient has also been receiving Miralax. * Encourage water intake. (3) Wound of gluteal cleft: Code(s): S31.809A - Unspecified open wound of unspecified buttock, initial encounter Status: Acute Assessment and Plan: Wound to left gluteal clef unstageable wound with surrounding erythema with purulent drainage. Patient resides in a residential and is total care at [facility]. * CT abdomen and pelvis w contrast now * WBC normal, lactic 0.9 * CRP 7.6, ESR >140. * Turn Q 2 hours, frequent repositioning * Wound care consulted. For now daily wound care with Santyl, adaptic, and ABD daily and as needed for soiled dressing. * General surgery consulted as this may need to be debrided, recs appreciated (4) Occult GI bleeding: Code(s): R19.5 - Other fecal abnormalities Status: Acute Assessment and Plan: Reports of coffee ground emesis at residential. No obvious signs of bleeding on exam. Not on anticoagulation. Blood pressures had been soft 95/46, 90 HR. Current blood pressure 102/57. * Hemoglobin 8.8 g/dl on admission, hgb 8.0 g/dl this morning * BUN 15 * Anemia panel: Iron 22, TIBC 191, Saturation 12%, vitamin B12 and folate normal * Occult blood pending collection * Trend H/H, transfuse for Hemoglobin less than 7 g/dl * IV Venofer x 1 and start on Iron supplement daily * GI consulted, rec's are appreciated * EGD 04/17 showed: normal esophagus, stomach normal, small hiatal hernia. (5) Normochromic normocytic anemia: Code(s): D64.9 - Anemia, unspecified Status: Acute Assessment and Plan: * Anemia panel: Iron 22, TIBC 191, Saturation 12%, vitamin B12 and folate normal. * Hemoglobin 8.0, hematocrit 26.3. (6) Nausea: Code(s): R11.0 - Nausea Status: Acute Assessment and Plan: * Add Prochlorperazine 5 mg ivp q8 PRN. Subjective Date/time seen: 04/21/24 11:26 Interval history: Patient reports nausea, denies vomiting or abdominal pain. Patient had 2 bowel movements after soap suds enema yesterday. Review of Systems Review of Systems: All systems reviewed & are unremarkable except as noted in HPI and below Exam Const: General: no acute distress Resp: Effort & Inspection: normal respiratory effort Auscultation: clear to auscultation bilaterally Ca
--- NOTE | 2024-04-21 11:26 | PM.IMPN ---
Progress Note: A&P Assessment and Plan (1) UTI (urinary tract infection): Code(s): N39.0 - Urinary tract infection, site not specified Status: Acute Assessment and Plan: Chronic Hagan catheter. U/A on admission showed turbid dark yellow urine with 3+ protein, trace ketones, 3+ blood 2 a day, RBC and WBC greater than 100, rare urine bacteria. WBC normal, no neutrophils Urine sent for culture. Suspect this is colonization. Urine culture preliminary showed klebsiella pneumoniae Obtain blood cultures if febrile greater than 100.4 Make sure catheter was exchanged. Started on Rocephin, switch to oral antibiotics on 04/19/24- Augmentin and Doxycycline. Monitor labs. (2) Constipation: Code(s): K59.00 - Constipation, unspecified Status: Acute Assessment and Plan: KUB 04/20/24 showed FINDINGS: Redemonstration of fecal stasis distending the rectum. Significantly enlarged air opacified stomach. Scattered loops small bowel without deonna dilatation. IMPRESSION: Findings suggesting impaction, as detailed above. soap suds enema yesterday with bowel movement x 2. Continue docusate/ senna 2 tabs daily. Patient has also been receiving Miralax. Encourage water intake. (3) Wound of gluteal cleft: Code(s): S31.809A - Unspecified open wound of unspecified buttock, initial encounter Status: Acute Assessment and Plan: Wound to left gluteal clef unstageable wound with surrounding erythema with purulent drainage. Patient resides in a [place] [facility] and is total care at [facility]. CT abdomen and pelvis w contrast now WBC normal, lactic 0.9 CRP 7.6, ESR >140. Turn Q 2 hours, frequent repositioning Wound care consulted. For now daily wound care with Santyl, adaptic, and ABD daily and as needed for soiled dressing. General surgery consulted as this may need to be debrided, recs appreciated (4) Occult GI bleeding: Code(s): R19.5 - Other fecal abnormalities Status: Acute Assessment and Plan: Reports of coffee ground emesis at [place] [facility]. No obvious signs of bleeding on exam. Not on anticoagulation. Blood pressures had been soft 95/46, 90 HR. Current blood pressure 102/57. Hemoglobin 8.8 g/dl on admission, hgb 8.0 g/dl this morning BUN 15 Anemia panel: Iron 22, TIBC 191, Saturation 12%, vitamin B12 and folate normal Occult blood pending collection Trend H/H, transfuse for Hemoglobin less than 7 g/dl IV Venofer x 1 and start on Iron supplement daily GI consulted, rec's are appreciated EGD 04/17 showed: normal esophagus, stomach normal, small hiatal hernia. (5) Normochromic normocytic anemia: Code(s): D64.9 - Anemia, unspecified Status: Acute Assessment and Plan: Anemia panel: Iron 22, TIBC 191, Saturation 12%, vitamin B12 and folate normal. Hemoglobin 8.0, hematocrit 26.3. (6) Nausea: Code(s): R11.0 - Nausea Status: Acute Assessment and Plan: Add Prochlorperazine 5 mg ivp q8 PRN. Subjective Date/time seen: 04/21/24 11:26 Interval history: Patient reports nausea, denies vomiting or abdominal pain. Patient had 2 bowel movements after soap suds enema yesterday. Review of Systems Review of Systems: All systems reviewed & are unremarkable except as noted in HPI and below Exam Const: General: no acute distress Resp: Effort & Inspection: normal respiratory effort Auscultation: clear to auscultation bilaterally Cardio: Rate: regular rate Rhythm: regular rhythm GI: GI Palp: Yes Soft to palpation Auscultation: normal bowel sounds Skin: Other: Pressure related injury to left buttocks with eschar wound bed and surrounding erythema. Skin warm and dry. Neuro: Other: Garbled speech Extrem: General: pedal edema bilaterally (trace) Other: bilateral foot drop Objective Data Vital Signs Vital Signs: Vital Signs - 24 hr 04/20/24 14:00 04/20/24 2
[2024-04-21] MEDS: FERROUS SULFATE 325 MG TABLET DR PO (11:54)
[2024-04-21 14:13] VITALS: BP 115/56; PULSE 100; RESP 16; TEMP 36.7; O2SAT 98
[2024-04-21 20:19] VITALS: BP 104/62; PULSE 102; RESP 16; TEMP 37.1; O2SAT 95
[2024-04-21] MEDS: traZODone HCL 50 MG TABLET PO (20:31)
[2024-04-21] MEDS: SIMVASTATIN 20 MG TABLET PO (20:32)
[2024-04-22 04:00] VITALS: BP 120/59; PULSE 88; RESP 16; TEMP 36.4; O2SAT 98
[2024-04-22 05:54] LABS: Basophils Percent Auto 0.5 % (0.2-1.2); Eosinophils Absolute Auto 0.4 K/mm3 (0-0.3); Eosinophils Percent Auto 5.4 % (0-4.4); Hematocrit 27.3 % (42.0-52.0); Hemoglobin 8.1 g/dL (14.0-18.0); Immature Granulocyte Absolute 0.16 K/mm3 (0.00-0.031); Immature Granulocyte Percent A 2.5 % (0-0.5); Lymphocytes Absolute Auto 1.78 K/mm3 (0.9-3.2); Lymphocytes Percent Auto 27.6 % (18.3-44.2); Mean Corpuscular HGB Conc 29.7 g/dl (32-36); Mean Corpuscular Hemoglobin 25.7 pg (26-34); Mean Corpuscular Volume 86.7 fl (80-100); Monocytes Absolute Auto 0.5 K/mm3 (0.1-0.6); Monocytes Percent Auto 8.4 % (2.6-8.5); Neutrophils Absolute Auto 3.6 K/mm3 (1.3-6.7); Neutrophils Percent Auto 55.6 % (45.5-73.1); Platelet Count Result 439 k/mm3 (150-375); Red Blood Count 3.15 M/mm3 (4.6-6.20); Red Cell Distribution Width 15.8 % (11.5-14.5); White Blood Count 6.5 K/mm3 (4.5-10.0)
[2024-04-22 06:10] LABS: Alanine Aminotransferase 18 U/L (6-50); Albumin Level 2.7 g/dL (3.5-5.1); Alkaline Phosphatase 122 U/L (38-126); Anion Gap 3 mmol/L (4-12); Aspartate Amino Transferase 29 U/L (17-59); Bilirubin,Total 0.4 mg/dL (0.2-1.3); Blood Urea Nitrogen 15 mg/dL (9-20); Calcium 8.3 mg/dL (8.4-10.2); Carbon Dioxide 31 mmol/L (22-30); Chloride 102 mmol/L (98-107); Estimated CRCL calculation 164 ml/min; Estimated Glomerular Filt Rate > 60; Glucose 104 mg/dL (65-110); Potassium 3.6 mmol/L (3.4-5.0); Sodium 136 mmol/L (137-145)
[2024-04-22 06:30] LABS: Anisocytosis 2+; Hypochromasia 1+; Platelet Estimate Increased (Adequate); Schistocytes None Seen
[2024-04-22] MEDS: VALPROIC ACID LIQ 250 MG/5 ML ORAL SOLUTION UDC PO (09:05)
[2024-04-22] MEDS: SENNA/DOCUSATE SODIUM TABLET 2 TAB PO (09:05)
[2024-04-22] MEDS: PANTOPRAZOLE SODIUM IV 40 MG VIAL IV PUSH (09:05)
[2024-04-22] MEDS: ESCITALOPRAM OXALATE 10 MG TABLET PO (09:05)
[2024-04-22] MEDS: AMOXICILLIN/CLAVULANATE K 875-125 MG TAB 1 TABLET PO (09:05)
[2024-04-22] MEDS: DOXYCYCLINE HYCLATE 100 MG TABLET PO (09:06)
[2024-04-22] MEDS: COLLAGENASE OINT 30 GM TUBE 1 APPLIC TOPICAL (09:06)
[2024-04-22] MEDS: ARIPiprazole 10 MG TABLET 20 MG PO (09:08)
--- NOTE | 2024-04-22 09:59 | PM.IMPN ---
Subjective Date/time seen: 04/22/24 09:59 Review of Systems Review of Systems: All systems reviewed & are unremarkable except as noted in HPI and below Objective Data Vital Signs Vital Signs: Vital Signs - 24 hr 04/21/24 14:13 04/21/24 20:19 04/21/24 20:00 Temperature 98.1 F 98.7 F Pulse Rate 100 102 H Respiratory Rate 16 16 Blood Pressure 115/56 L 104/62 Pulse Oximetry 98 95 Oxygen Delivery Room Air 04/22/24 04:00 Temperature 97.6 F Pulse Rate 88 Respiratory Rate 16 Blood Pressure 120/59 L Pulse Oximetry 98 Oxygen Delivery Intake/Output Intake/Output: Intake & Output 04/19/24 04/20/24 04/21/24 04/22/24 23:59 23:59 23:59 23:59 Intake Total 2790 540 1420 340 Output Total 1900 2850 1800 900 Balance 890 -2310 -380 -560 Meds/Results Medications: Active Medications Generic Name Dose Route Start Last Admin Trade Name Freq PRN Reason Stop Dose Admin Amoxicillin/Clavulanate Potassium 1 tablet 04/19/24 21:00 04/22/24 09:05 Amoxicillin/Clavulanate K 875-125 Mg Tab PO 04/27/24 09:01 1 tablet Q12HR YEN Administration Aripiprazole 20 mg 04/17/24 09:00 04/22/24 09:08 Aripiprazole 10 Mg Tablet PO 05/17/24 08:59 20 mg DAILY YEN Administration Collagenase 1 applic 04/17/24 09:00 04/22/24 09:06 Collagenase Oint 30 Gm Tube TOPICAL 1 applic QAM YEN Administration Doxycycline Hyclate 100 mg 04/19/24 21:00 04/22/24 09:06 Doxycycline Hyclate 100 Mg Tablet PO 04/27/24 09:01 100 mg Q12HR YEN Administration Escitalopram Oxalate 10 mg 04/18/24 09:00 04/22/24 09:05 Escitalopram Oxalate 10 Mg Tablet PO 10 mg Q48H YEN Administration Ferrous Sulfate 325 mg 04/20/24 12:00 04/21/24 11:54 Ferrous Sulfate [address] PO 325 mg DAILY@1200 YEN Administration Pantoprazole Sodium 40 mg 04/17/24 09:00 04/22/24 09:05 Pantoprazole Sodium Iv 40 Mg Vial IV PUSH 40 mg Q12HR YEN Administration Polyethylene Glycol 17 gm 04/17/24 02:20 04/20/24 10:27 Polyethylene Glycol 3350 17 Gm Powd.Pack PO 17 gm DAILY PRN Administration Constipation Prochlorperazine Edisylate 5 mg 04/21/24 11:25 Prochlorperazine Edisylate 10 Mg/2 Ml Vial IV PUSH Q8H PRN Nausea And Vomiting Senna/Docusate Sodium 2 tab 04/20/24 13:15 04/22/24 09:05 Senna/Docusate Sodium Tablet PO 2 tab DAILY YEN Administration Simvastatin 20 mg 04/17/24 21:00 04/21/24 20:32 Simvastatin 20 Mg Tablet PO 20 mg HS YEN Administration Trazodone HCl 50 mg 04/17/24 21:00 04/21/24 20:31 Trazodone Hcl 50 Mg Tablet PO 50 mg HS YEN Administration Valproate Sodium 250 mg 04/17/24 09:00 04/22/24 09:05 Valproic Acid Liq 250 Mg/5 Ml Oral Solution Udc PO 250 mg Q12HR YEN Administration Radiology Results: ITS Impressions Chest X-Ray 04/16/24 19:55 IMPRESSION: Cardiomegaly with congestive jonnathan. Bilateral interstitial changes suggestive of pneumonitis versus pulmonary edema. Abdomen/Pelvis CT 04/17/24 16:06 IMPRESSION: Significant inflammatory change within the presacral space of the pelvis. No soft tissue defect or drainable fluid collection is appreciated. Splenomegaly. Abdomen X-Ray 04/20/24 12:20 IMPRESSION: Findings suggesting impaction, as detailed above. Labs Labs: Laboratory Results - last 24 hr 04/22/24 05:28 WBC 6.5 RBC 3.15 L Hgb 8.1 L Hct 27.3 L MCV 86.7 MCH 25.7 L MCHC 29.7 L RDW 15.8 H Plt Count 439 H MPV 8.0 Immature Gran % (Auto) 2.5 H Neut % (Auto) 55.6 Lymph % (Auto) 27.6 [place] % (Auto) 8.4 Eos % (Auto) 5.4 H Baso % (Auto) 0.5 Lymph # (Auto) 1.78 [place] # (Auto) 0.5 Eos # (Auto) 0.4 H Baso # (Auto) 0.0 Abs Immat Gran (auto) 0.16 H Absolute Neuts (auto) 3.6 Absolute Nucleated RBC 0.000 Nucleated RBC % 0.0 Platelet Estimate Increased Hypochromasia 1+ Anisocytosis 2+ Schistocytes None seen Sodium 136 L Potassium 3
--- NOTE | 2024-04-22 11:15 | PM.DS ---
DS: Admitting Diagnosis Discharge Date 04/22/2024 Admitting Diagnosis GI Bleed DS: Discharge Diagnosis Discharge Diagnosis (1) Wound of gluteal cleft: Code(s): S31.809A - Unspecified open wound of unspecified buttock, initial encounter Status: Acute (2) Constipation: Code(s): K59.00 - Constipation, unspecified Status: Acute (3) UTI (urinary tract infection): Code(s): N39.0 - Urinary tract infection, site not specified Status: Acute (4) Hiatal hernia: Code(s): K44.9 - Diaphragmatic hernia without obstruction or gangrene Status: Acute DS: Summary Hospital Course Hospital Course: Patient is a 69-year-old male who is orient x1 at baseline who presented to the ER 04/16/24 with concerns for coffee-ground emesis, + occult blood. EGD done on 04/17/24 and showed Hiatal hernia. Received IV Venofer x 1 and started on Iron supplement daily. Urine on admission showed turbid dark yellow urine with 3+ protein, trace ketones, 3+ blood 2 a day, RBC and WBC greater than 100, rare urine bacteria. Catheter exchanged. Urine culture grew Klebsiella Pneumoniae. Patient was given Rocephin and transitioned to oral Augmentin and Doxycycline. Wound care for sacral area: Daily cleanse left buttock wound with soap and water, apply santyl ointment, apply nickel thick. Cover with adaptic gauze and ABD over covered dressing. Secure with medipore tape. KUB on 04/20/24 showed fecal impaction Patient had 2 bowel movements on 04/20 and a large BM today. Abdomen soft, BS+. Status at Discharge Functional status at discharge: wheelchair bound Overall status at discharge: patient is progressing back to baseline Time Spent with Patient Time attestation: Total time spent providing and/or coordinating discharge services: Time spent: Greater than 30 minutes Exam Const: General: comfortable and no acute distress Resp: Effort & Inspection: normal respiratory effort Auscultation: clear to auscultation bilaterally Cardio: Rate: regular rate Rhythm: regular rhythm GI: GI Palp: Yes Soft to palpation Auscultation: normal bowel sounds Other: Last BM today Neuro: Other: Garbled speech. Extrem: General: pedal edema bilaterally (Trace) Other: Bilateral foot drop DS: Data Data Completed and Pending Labs on day of discharge: Labs from last 24 hours 04/22/24 05:28 WBC 6.5 RBC 3.15 L Hgb 8.1 L Hct 27.3 L MCV 86.7 MCH 25.7 L MCHC 29.7 L RDW 15.8 H Plt Count 439 H MPV 8.0 Immature Gran % (Auto) 2.5 H Neut % (Auto) 55.6 Lymph % (Auto) 27.6 [place] % (Auto) 8.4 Eos % (Auto) 5.4 H Baso % (Auto) 0.5 Lymph # (Auto) 1.78 [place] # (Auto) 0.5 Eos # (Auto) 0.4 H Baso # (Auto) 0.0 Abs Immat Gran (auto) 0.16 H Absolute Neuts (auto) 3.6 Absolute Nucleated RBC 0.000 Nucleated RBC % 0.0 Platelet Estimate Increased Hypochromasia 1+ Anisocytosis 2+ Schistocytes None seen Sodium 136 L Potassium 3.6 Chloride 102 Carbon Dioxide 31 H Anion Gap 3 L BUN 15 Creatinine 0.40 L Estim Creat Clear Calc 164 Estimated GFR > 60 Glucose 104 Calcium 8.3 L Total Bilirubin 0.4 AST 29 ALT 18 Alkaline Phosphatase 122 Total Protein 6.0 L Albumin 2.7 L Discharge Plan Discharge Attending physician on discharge: Cornelius Buenrostro Consulting providers: Jocy Gray; Akira Vargas Discharging Clinician: Luz Mosqueda Anticipated Discharge Date/Time: 04/22/24 13:00 Patient Disposition: SNF Activity: november shower Diet: other - see discharge instructions Discharge Instructions: Phillip 1 pack twice daily Pureed level 4 regular diet Daily cleanse left buttock wound with soap and water, apply santyl ointment, apply nickel thick. Cover with adaptic gauze and ABD over covered dressing. Secure with medipore tape. Patient Instructions: Hiatal Hernia (DC), Constipation (DC), Anemia (DC), Urinary Tract Infection in Older Adults (DC)
[2024-04-22] MEDS: FERROUS SULFATE 325 MG TABLET DR PO (12:24)
[2024-04-22 15:10] VITALS: BP 105/50; PULSE 98; RESP 16; TEMP 36.6; O2SAT 99
--- NOTE | 2024-04-23 09:14 | PC.NURSE ---
04/22/2024 1630 Discharge wound photos taken. Camera unable to upload photos to [facility], Charge nurse, Jennifer Nolasco notified.
== END 2024-04-22 18:05 | DRG 378 ==
LOC: ANHED 22:20 → ANH2MED 22:40
PROVIDERS: Emergency Medicine; Internal Medicine Gastroenterology; Nurse Practitioner; Nurse Practitioner Acute Care; Admitting Provider Internal Medicine; Emergency Provider Emergency Medicine; Visit Provider Nurse Practitioner Family
PROC: 0DJ08ZZ Inspection of Upper Intestinal Tract, Via Natural or Artificial Opening Endoscopic (ICD-10-PCS; CPT 43235; principal; 2024-04-17 12:30)
DX: K92.2 Gastrointestinal hemorrhage, unspecified (principal); N39.0 Urinary tract infection, site not specified; T83.511A Infection and inflammatory reaction due to indwelling urethral catheter, initial encounter; B96.1 Klebsiella pneumoniae [K. pneumoniae] as the cause of diseases classified elsewhere; D50.9 Iron deficiency anemia, unspecified; D63.8 Anemia in other chronic diseases classified elsewhere; F31.9 Bipolar disorder, unspecified; F01.50 Vascular dementia, unspecified severity, without behavioral disturbance, psychotic disturbance, mood disturbance, and anxiety; G40.909 Epilepsy, unspecified, not intractable, without status epilepticus; K44.9 Diaphragmatic hernia without obstruction or gangrene; Z86.0101 Personal history of adenomatous and serrated colon polyps; L89.320 Pressure ulcer of left buttock, unstageable; R26.9 Unspecified abnormalities of gait and mobility; K59.00 Constipation, unspecified; R11.0 Nausea; Z99.3 Dependence on wheelchair
CPT/HCPCS: 36415; 71045; 74018; 74177; 80053; 80202; 81001; 82607; 82728; 82746; 82948; 83540; 83550; 83605; 83735; 85014; 85018; 85025; 85652; 86140; 86850; 86900; 86901; 87086; 87186; 93005; 96361; 96375; 99285; A9270; G0378; J0171; J0696; J1756; J2003; J2470; J2704; J3370; J3480; J7030; J7050; J7120; Q9967